=== PATIENT | male | born 1955 | race Caucasian/White ===

== ENCOUNTER 2018-02-24 14:26 | Outpatient (CLI) | payer BC, SELFPAY ==
[2018-02-24 16:02] LABS: Folate 15.2 ng/mL (8.6-20.0); Vitamin B12 1131 pg/mL (193-986)
[2018-02-28 10:54] LABS: Syphilis Serology (RPR) Negative (Negative)
== END 2018-02-24 14:46 ==
PROVIDERS: PCP Family Medicine; Visit Provider Family Medicine
DX: R27.0 Ataxia, unspecified (principal)
CPT/HCPCS: 36415; 82043; 82570; 82607; 82746; 83036; 86592

== ENCOUNTER 2018-02-24 14:28 | Outpatient (REF) | payer BC, SELFPAY ==
[2018-02-24 20:34] LABS: COMMENT (LAB VIEW ONLY) 32.61 mg/dL; Microalb ug/mg Crea 16.3 ug/mg Cr
== END 2018-02-24 14:48 ==
LOC: LBN 14:28
PROVIDERS: PCP Family Medicine; Visit Provider Family Medicine
DX: E11.9 Type 2 diabetes mellitus without complications (principal)
CPT/HCPCS: 82043; 82570

== ENCOUNTER 2019-02-09 02:18 | Outpatient (CLI) | payer OTHER, SELFPAY ==
[2019-02-09] MEDS: Normal Saline Flush 10 ML SYR IVP (11:09)
[2019-02-09] MEDS: Gadoterate meglumine 20 ML VIAL IVP (11:10)
--- NOTE | 2019-02-09 11:32 | DI.MRI_ITS ---
EXAM: MR CERVICAL SPINE WO/W CLINICAL HISTORY: MULTI LEVEL SPINAL STENOSIS, SPONDYLOSIS, FORAMINAL NARROWING. TECHNIQUE: Multiplanar multisequence MRI was performed. COMPARISON: No exams were available for comparison FINDINGS: There is patient motion artifact. There is normal signal in the spinal cord. No evidence of tonsillar ectopia is present. At C7-T1, there is no focal disc herniation, central spinal canal or neural foraminal stenosis. At C6-C7, there is prominence of the osteophyte disc complex. This causes mild narrowing of the cent ral spinal canal. There are hypertrophic changes of the uncovertebral joints bilaterally. This caus es moderate bilateral neural foraminal stenosis. At C5-C6, there is prominence of the osteophyte disc complex. This causes mild narrowing of the cent ral spinal canal. Atrophic changes of the uncovertebral joints are seen bilaterally, right [place] left. This results in moderate right and mild left neural foraminal stenosis. At C4-C5, there is prominence of the osteophyte disc complex causing mild narrowing of the central sp inal canal. Uncovertebral joint hypertrophic changes are seen. This causes mild narrowing of the n eural foramen bilaterally. At C3-C4, there are degenerative changes of the uncovertebral joints causing moderate bilateral neura l foraminal stenosis. No significant central spinal canal stenosis is present. At C2-C3, there is no focal disc herniation, central spinal canal or neural foraminal stenosis. There is a single round focus of hyperintense signal on both the T1 and T2 weighted images in the C3 vertebral body. This likely reflects a hemangioma or fatty rest. It shows no enhancement following contrast administration. Following contrast administration, there are no enhancing lesions in the cervical spine, spinal canal or spinal cord. IMPRESSION: 1. Multilevel degenerative changes in the cervical spine resulting in multilevel neural foraminal and central spinal canal stenosis. Please see the above discussion for complete details. 2. No enhancing lesions seen in the cervical spine, spinal canal or spinal cord.
== END 2019-02-09 02:38 ==
PROVIDERS: PCP Family Medicine; Visit Provider Anesthesiology
DX: M48.02 Spinal stenosis, cervical region (principal); M47.812 Spondylosis without myelopathy or radiculopathy, cervical region
CPT/HCPCS: 72156

== ENCOUNTER 2019-04-03 15:32 | Outpatient (CLI) | payer OTHER, SELFPAY ==
[2019-04-03 16:42] LABS: ALT 35 U/L (16-63); AST 19 U/L (15-37); Albumin 3.8 g/dL (3.4-5.0); Alkaline Phosphatase 101 U/L (46-116); Bilirubin, Direct 0.08 mg/dL (0.00-0.20); Bilirubin, Total 0.4 mg/dL (0.2-1.0); Total Protein 7.1 g/dL (6.4-8.2)
== END 2019-04-03 15:52 ==
PROVIDERS: PCP Family Medicine; Visit Provider Family Medicine
DX: B35.1 Tinea unguium (principal)
CPT/HCPCS: 36415; 80076

== ENCOUNTER 2019-04-28 19:22 | Outpatient (REF) | payer OTHER, SELFPAY ==
[2019-04-28 19:34] LABS: C-Reactive Protein 0.37 mg/dL (0.0-0.3)
[2019-05-01 13:32] LABS: Lyme Ab w Rflx to Lyme Confirm Negative (Negative)
[2019-05-02 18:48] LABS: Anaplasma phagocytophilum Negative (Negative); B. miyamotoi PCR Negative (Negative); Babesia divergens/MO-1 Negative (Negative); Babesia duncani Negative (Negative); Babesia microti Negative (Negative); Ehrlichia chaffeensis Negative (Negative); Ehrlichia ewingii/canis Negative (Negative); Ehrlichia muris eauclairensis Negative (Negative)
== END 2019-04-28 19:42 ==
LOC: NCHCN 19:22
PROVIDERS: PCP Family Medicine; Visit Provider Family Medicine
DX: M13.0 Polyarthritis, unspecified (principal)
CPT/HCPCS: 87798; 86140; 86618

== ENCOUNTER 2019-05-23 14:39 | Outpatient (REF) | payer OTHER, SELFPAY ==
[2019-06-21 08:22] LABS: Fungus Smear No Fungi Seen
== END 2019-05-23 14:59 ==
LOC: LBN 14:39
PROVIDERS: PCP Family Medicine; Visit Provider Family Medicine
DX: J18.9 Pneumonia, unspecified organism (principal)
CPT/HCPCS: 87102; 87206

== ENCOUNTER 2019-06-26 13:14 | Outpatient (CLI) | payer OTHER, SELFPAY ==
[2019-06-28 20:04] LABS: SARS-CoV-2 RNA Undetected (Undetected); SARS-CoV-2 Specimen Source Nasopharynx
== END 2019-06-26 13:34 ==
PROVIDERS: PCP Family Medicine; Visit Provider Family Medicine
DX: Z11.59 Encounter for screening for other viral diseases (principal)
CPT/HCPCS: U0003

== ENCOUNTER 2019-07-18 00:18 | Outpatient (CLI) | payer OTHER, SELFPAY ==
--- NOTE | 2019-07-18 07:15 | DI.US_ITS ---
APPROVED REPORT EXAM: Comprehensive 2D, Doppler, and color-flow Echocardiogram Patient Location: Out-Patient Haircutter: Nora Krishnamurthy RDCS (AE) Indications: CUETO Other Information Study Quality: Technically Difficult Conclusion Left Ventricle : The left ventricle is normal size. The overall left ventricular systolic function ap pears normal. There is normal left ventricular wall thickness. There is normal LV segmental wall jennifer on. The left ventricular diastolic function is normal. LVEF is 50%. Right Ventricle : The right ventricle is normal size. The right ventricular systolic function is norm al. The RVSP is 18 mmHg. Atria : The left atrium size is normal. The right atrium size is normal. Valves: There are no hemodynamically significant valvular lesions. Great Vessels : IVC is normal in size and collapses >50% with inspiration. There is no prior echocardiogram available for comparison. Wall motion Left Ventricle The left ventricle is normal size. The overall left ventricular systolic function appears normal. The re is normal left ventricular wall thickness. There is normal LV segmental wall motion. The left vent ricular diastolic function is normal. There is no ventricular septal defect visualized. LVEF is 50%. Right Ventricle The right ventricle is normal size. The right ventricular systolic function is normal. The RVSP is 18 mmHg. Atria The left atrium size is normal. The right atrium size is normal. The interatrial septum is intact wit h no evidence for an atrial septal defect. Aortic Valve The Aortic valve is sclerotic. There is no aortic valvular stenosis. No aortic regurgitation is prese nt. Mitral Valve There is mitral annular calcification. No evidence of mitral valve stenosis. Trace mitral regurgitati on. Tricuspid Valve The tricuspid valve is normal in structure. There is no tricuspid valve stenosis. Trace tricuspid reg urgitation. Pulmonic Valve Pulmonic valve is not well visualized. There is no pulmonic valvular stenosis. There is no pulmonic v alvular regurgitation. Great Vessels The aortic root is normal in size. Ascending aorta is not well visualized. Aortic arch is normal in c aliber. IVC is normal in size and collapses >50% with inspiration. Pericardium There is no pericardial effusion. There is no pleural effusion. 2D Dimensions IVSD d PLAX 1.01 cm M: 0.6-1.2 LV Vol A2C d MOD 118.6 mL LVPW d PLAX 1.09 cm M: 0.6 - 1.2 LV Vol A4C d MOD 96.0 mL LVID d PLAX 4.54 cm M: 4.2 - 5.8 LA vol/ BSA A2C s A-L 20.9 mL/m2 LVDs 3.40 cm M: 2.5 - 4.0 LA vol/ BSA A4C s A-L 12.8 mL/m2 Ao Root d 3.28 cm M: 3.1 - 3.7 LA Vol/ BSA Biplane s A-L 16.5 mL/m2 RA Area A4C 11.15 cm2 LA Area A4C s MOD 12.34 cm2 RA Vol/ BSA A4C s A-L 10.7 mL/m2 LA Area A2C s MOD 15.59 cm2 LV EF Teichholz 49.6 % LV EF A4C MOD 48.5 % LVEF (Lan's) 49.95 % M: 52 - 72 LV EF A2C MOD 49.2 % LV Volume 81.78 mL M: 62 - 150 LV EF Biplane MOD 50.0 % LV Volume Index 36.50 mL/m2 M: 34 - 74 LV Vol Biplane MOD 113.1 mL FS 25.00 % M-Mode TAPSE 2.04 cm (M/F) >1.7 LV Diastology E Decel Time 160.00 (160-240 msec) E/A Ratio 1.0 MV E' medial 0.067 (>0.07 m/s) MV E Vmax 0.65 (0.4-1.3 m/s) LV E/e MED 9.70 (<14) MV A Vmax 0.65 (0.4-1.3 m/s) MV E' lateral 0.060 (>0.1 m/s) MV E/A Ratio 0.95 LV E/e LAT 10.90 (<14) MV E/E' medial 9.72 MV E/E' lateral 10.91 E Peak Velocity 0.65 m/s A Peak Velocity 0.69 m/s Aortic Valve LVOT Area 2.93 cm2 AoV Area Vmax 2.18 cm2 LVOT Vmax 0.73 m/s AoV Area/ BSA (Vmax) 0.97 cm2/m2 LVOT Mean Todd. 0.52 m/s TIMMY Mean Todd. 1.96 cm2 LVOT Peak Grad 2.2 mmHg TIMMY Mean Todd. Index 0.87 cm2/m2 LVOT Mean Grad 1.2 mmHg LVOT VTI 0.146 m LVOT Diam s 1.90 cm (M/F) 1.5-2.5 AoV Vmax 0.99 (0.5-1.3 m/s) Velocity Ratio 0.73 AoV Mean Todd. 0.79 m/s AoV Peak Grad 3.9 mmHg LVOT SV 42.88 mL AoV Mean Grad 2.6 (<5 mmHg) AoV VTI 0.182 (0.18-0.25 m) AoV Area VTI 2.35 (2.5-4.5 cm2) AoV Area/ BSA (VTI) 1.05 cm/m2 Mitral Valve MV DT 160 (160-240 msec) MV PHT 46 msec MV Area PHT 4.73 cm2 Pulmonary Valve PV Vmax 1.00 (0.5-1.5 m/s) RVOT Peak Gr. 1.30 mmHg PV Peak Grad 4.0 mmHg RVOT Mean Gr. 0.75 mmHg PV Mean Grad 2.0 mmHg RVOT VTI 0.099 m PV VTI 0.168 m RVOT Vmax 0.57 m/s Tricuspid Valve TR Peak Grad 15.2 mmHg TR Vmax 1.96 m/s RA Pressure 3.00 mmHg RVSP (TR) 18.3 mmHg
== END 2019-07-18 00:38 ==
PROVIDERS: PCP Family Medicine; Visit Provider Family Medicine
DX: R06.09 Other forms of dyspnea (principal); E11.9 Type 2 diabetes mellitus without complications; Z79.4 Long term (current) use of insulin
CPT/HCPCS: 93306

== ENCOUNTER 2019-08-25 08:25 | Outpatient (CLI) | payer OTHER, SELFPAY ==
[2019-08-26 13:09] LABS: COVID-19 RT-PCR UVMMC Result Negative (Negative)
== END 2019-08-25 08:45 ==
PROVIDERS: PCP Family Medicine; Visit Provider Family Medicine
DX: Z11.59 Encounter for screening for other viral diseases (principal)
CPT/HCPCS: U0003

== ENCOUNTER 2019-08-28 18:50 | Outpatient (REF) | payer OTHER, SELFPAY ==
[2019-08-28 18:53] LABS: Abs Immature Grans 0.01 k/cumm (0.0-0.09); Absolute Basophil Count 0.01 k/cumm (0.0-0.2); Absolute Lymphocyte Count 1.75 k/cumm (1.2-3.4); Absolute Monocyte Count 0.69 k/cumm (0.11-0.7); Absolute Neutrophil Count 2.59 k/cumm (1.2-6.7); Basophils % 0.2; Eosinophils % 3.8; HCT 42.7 % (40.0-50.0); HGB 14.1 g/dL (13.5-17.5); Immature Grans % 0.2 %; Lymphocytes % 33.3; Mean Corpuscular Hemoglobin 28.9 pg (27.0-33.0); Mean Corpuscular Volume 87.5 fL (80-95); Mean Platelet Volume 10.6 fL (8.0-11.0); Monocytes % 13.1; Neutrophils % 49.4; Platelet Count 196 x1000/uL (130-400); RBC 4.88 m/cumm (4.50-6.00); White Blood Cell Count 5.25 k/cumm (4.4-10.8)
== END 2019-08-28 19:10 ==
LOC: LBN 18:50
PROVIDERS: PCP Family Medicine; Visit Provider Family Medicine
DX: R06.00 Dyspnea, unspecified (principal)
CPT/HCPCS: 85025

== ENCOUNTER 2019-08-29 04:39 | Outpatient (CLI) | payer OTHER, SELFPAY ==
--- NOTE | 2019-08-30 08:40 | W.PFT ---
Date of service: 08/29/19 Time of Service: 10:06 Pulmonary Function Test Result Interpretation Spirometry: No evidence of obstructive airways disease, no bronchodilator response Lung Volumes: Shows moderate restriction Diffusion Capacity: Shows moderately decreased diffusion capacity which is normal when corrected to alveolar volume Airway Pressure: Normal Impression Moderately severe restrictive lung disease which is associated with moderate diffusion defect. Clinical correlation recommended Clinical Correlation therefore is recommended.
== END 2019-08-29 04:59 ==
PROVIDERS: PCP Family Medicine; Visit Provider Family Medicine
DX: R06.09 Other forms of dyspnea (principal)
CPT/HCPCS: 94060; 94726; 94729

== ENCOUNTER 2019-09-29 03:28 | Outpatient (CLI) | payer MEDICARE, BC, SELFPAY ==
[2019-09-30 13:43] LABS: SARS-CoV-2 IgG Ab Negative (Negative)
== END 2019-09-29 03:48 ==
PROVIDERS: PCP Family Medicine; Visit Provider Internal Medicine
DX: R93.89 Abnormal findings on diagnostic imaging of other specified body structures (principal); Z03.818 Encounter for observation for suspected exposure to other biological agents ruled out
CPT/HCPCS: 36415; 86769

== ENCOUNTER 2019-10-05 01:27 | Outpatient (CLI) | payer MEDICARE, BC, SELFPAY ==
--- NOTE | 2019-10-05 | DI.CT_ITS ---
EXAM: CT CHEST PE CTA CLINICAL HISTORY: F/U ABNL CHEST XRAY,R93.89,? THROMBOEMBOLIC DISEASE,SOB TECHNIQUE: COMPARISON: CR CHEST 2 VIEWS PA,LAT from 06/26/2016 DX CXR from 05/18/2019 FINDINGS: CT angiography of the chest was was infusion 100 cc of Omnipaque 350. Images obtained through the up per abdomen show unremarkable appearance of visualized portions of the liver and spleen. There is no mediastinal or hilar adenopathy. Tracheobronchial tree appears intact. There are linear areas of atelectasis and/or scarring in lung bases. There are few tiny calcified pulmonary nodules consistent with healed granulomatous disease. No noncalcified nodule seen, no apparent consolidation . No pleural effusion. There is no evidence of pulmonary embolic disease. Thoracic aorta is of normal diameter and there is no evidence of dissection. IMPRESSION: No evidence of pulmonary embolic disease. There are small bibasilar areas of atelectasis and/or scarring. No other significant findings.
[2019-10-05 13:33] LABS: BUN 18 mg/dL (7-18); CREATININE 1.12 mg/dL (0.70-1.30)
[2019-10-05] MEDS: Omnipaque 350 MG/ML 100 ML BTL IJ (14:13)
[2019-10-05] MEDS: Normal Saline - Diluent 50 ML VIAL IV (14:14)
[2019-10-05] MEDS: Normal Saline Flush 10 ML SYR IVP (14:15)
== END 2019-10-05 01:47 ==
PROVIDERS: PCP Family Medicine; Visit Provider Internal Medicine
DX: R93.89 Abnormal findings on diagnostic imaging of other specified body structures (principal); J98.4 Other disorders of lung
CPT/HCPCS: 71275; 84520; 82565; J3490

== ENCOUNTER → 2020-06-12 13:07 | Outpatient (BNVA) | payer MEDICARE, BC, SELFPAY | PROVIDERS: PCP Family Medicine; Referring Provider Family Medicine; Visit Provider Nurse Practitioner Gerontology | DX: C61 Malignant neoplasm of prostate (principal); N52.9 Male erectile dysfunction, unspecified | CPT/HCPCS: 99205 ==

== ENCOUNTER 2020-06-12 15:15 | Outpatient (REF) | payer MEDICARE, BC, SELFPAY ==
[2020-06-12 22:58] LABS: PSA, Diagnostic <0.1 ng/mL (0.0-4.5)
== END 2020-06-12 15:16 | disposition home or self-care (01) ==
LOC: LBN 15:15
PROVIDERS: PCP Family Medicine; Visit Provider Nurse Practitioner Gerontology
DX: C61 Malignant neoplasm of prostate (principal)
CPT/HCPCS: 84153

== ENCOUNTER 2020-11-19 16:36 | Outpatient (REF) | payer MEDICARE, BC, SELFPAY ==
[2020-11-19 22:32] LABS: Rheumatoid Factor <8.6 IU/mL (<12.0)
[2020-11-20 09:29] LABS: IgA 125 mg/dL (85-499); IgG 1168 mg/dL (610-1,616); IgM 136 mg/dL (35-242)
[2020-11-20 10:08] LABS: Cyclic Citrullinated Peptide <2.5 U/mL (<5.0)
[2020-11-20 10:26] LABS: IgE 133 IU/mL (<158)
[2020-11-20 14:02] LABS: ANA Interpretation Negative (Negative)
[2020-11-21 11:36] LABS: dsDNA Ab, IgG <12.3 IU/mL (<30.0)
== END 2020-11-19 16:37 | disposition home or self-care (01) ==
LOC: LBN 16:36
PROVIDERS: PCP Family Medicine; Visit Provider Student in an Organized Health Care Education/Training Program
DX: J98.4 Other disorders of lung (principal)
CPT/HCPCS: 82784; 86200; 82785; 82787; 86038; 86225; 86431

== ENCOUNTER 2020-11-26 05:02 | Outpatient (CLI) | payer MEDICARE, BC, SELFPAY ==
[2020-11-26] MEDS: Albuterol HFA 18 GM 200 PUFF INH IH (16:29)
[2020-11-26] MEDS: Inhaler, Assist Device 1 EACH MC (16:29)
--- NOTE | 2020-11-27 13:05 | W.PFT ---
Date of service: 11/26/20 Time of Service: 15:09 Pulmonary Function Test Result Requesting Provider Ish Indications: Dyspnea on exertion Interpretation Spirometry: There is no airflow limitation. There is a restrictive pattern to spirometry. There is no significant bronchodilator effect. Pulse MIP and MEP are decreased. Lung Volumes: There is moderate restrictive lung disease. Diffusion Capacity: The diffusion capacity is reduced. Airway Pressure: Noise resistance is normal. Impression Moderate restrictive lung disease with decreased muscle pressures as well as a reduced diffusion. Note: When compared to 08/29/2019 the FEV1 and FVC are essentially unchanged. The total lung capacity is unchanged. Clinical Correlation therefore is recommended.
== END 2020-11-26 05:03 | disposition home or self-care (01) ==
PROVIDERS: PCP Family Medicine; Visit Provider Student in an Organized Health Care Education/Training Program
DX: J98.4 Other disorders of lung (principal); R06.09 Other forms of dyspnea
CPT/HCPCS: 94060; 94726; 94729

== ENCOUNTER 2020-12-02 01:41 | Outpatient (CLI) | payer MEDICARE, BC, SELFPAY ==
--- NOTE | 2020-12-02 08:15 | DI.CT_ITS ---
Exam(s) CT CHEST HIGH RESOLUTION EXAM: CT CHEST HIGH RESOLUTION CLINICAL HISTORY: Restrictive PFT's, rule out ILD J98.4 DISORDER OF LUNG. TECHNIQUE: Imaging protocol: Axial computed tomography images were obtained and coronal and sagittal reformatted images were created and reviewed. COMPARISON: CR CHEST 2 VIEWS PA,LAT from 08/02/2015 CR CHEST 2 VIEWS PA,LAT from 08/02/2015 CR CHEST 2 VIEWS PA,LAT from 06/26/[address] CHEST PE CTA from 10/05/[address] CHEST PE CTA from 10/05/2019 FINDINGS: Tracheobronchial tree: Patent where visualized. No bronchiectasis. Mediastinum and Prabha: No dominant adenopathy or fluid collection. Pulmonary parenchyma: No consolidation or dominant measurable mass. No visible interstitial changes. Basilar atelectasis or scarring. Low lung volumes. A few scattered tiny to 3 millimeter calcified and noncalcified nodules, likely granulomas. Pleura: No effusion or pneumothorax. Heart: The heart is not dilated. Mild coronary artery calcifications are seen. Aorta: Thoracic aorta non-dilated. Minimal calcification. Upper abdomen: Status post cholecystectomy. Cyst upper pole right kidney. Granuloma posterior righ t lobe of the liver. Lymph nodes: Within normal limits. Bones:Unremarkable for age. IMPRESSION: Low lung volumes and mild bilateral bibasilar scarring versus atelectasis. No evidence interstitial lung disease. RADIATION DOSE DELIVERED: 792.24mGy.cm Total DLP DATA REPOSITORY: All CT scans at this facility are submitted to the National Radiology Data Registry (NRDR) Dose Index Registry (DIR) with the [employer] (ACR). RADIATION OPTIMIZATION: All CT scans at this facility use at least one of these dose optimization te chniques: automated exposure control; mA and/or kV adjustment per patient size (includes targeted exa ms where dose is matched to clinical indication); or iterative reconstruction.
== END 2020-12-02 02:01 ==
PROVIDERS: PCP Family Medicine; Visit Provider Student in an Organized Health Care Education/Training Program
DX: J98.4 Other disorders of lung (principal); R91.8 Other nonspecific abnormal finding of lung field
CPT/HCPCS: 71250

== ENCOUNTER → 2021-02-26 11:03 | Outpatient (BNVA) | payer MEDICARE, BC, SELFPAY | PROVIDERS: PCP Family Medicine; Referring Provider Student in an Organized Health Care Education/Training Program; Visit Provider Psychiatry & Neurology Neurology | DX: E11.49 Type 2 diabetes mellitus with other diabetic neurological complication (principal); E11.65 Type 2 diabetes mellitus with hyperglycemia; G70.9 Myoneural disorder, unspecified; J99 Respiratory disorders in diseases classified elsewhere; G62.9 Polyneuropathy, unspecified; E11.43 Type 2 diabetes mellitus with diabetic autonomic (poly)neuropathy; R06.02 Shortness of breath; M48.02 Spinal stenosis, cervical region; I10 Essential (primary) hypertension | CPT/HCPCS: 99215 ==

== ENCOUNTER 2021-03-05 01:31 | Outpatient (CLI) | payer MEDICARE, BC, SELFPAY ==
[2021-03-05 13:55] LABS: ESR 3 mm/hr (0-20)
[2021-03-05 14:44] LABS: ALT 36 U/L (16-63); AST 16 U/L (15-37); Albumin 3.8 g/dL (3.4-5.0); Alkaline Phosphatase 100 U/L (46-116); Anion Gap 6.9 mmol/L (3-11); BUN 20 mg/dL (7-18); Bilirubin, Total 0.4 mg/dL (0.2-1.0); CO2 30.1 mmol/L (21.0-32.0); CREATININE 1.2 mg/dL (0.70-1.30); Chloride 103 mmol/L (98-107); Glucose 247 mg/dL (74-106); Potassium 4.6 mmol/L (3.5-5.1); Sodium 140 mmol/L (136-145); Total Protein 7.2 g/dL (6.4-8.2)
[2021-03-05 17:17] LABS: C-Reactive Protein 0.25 mg/dL (0.0-0.3); Creatine Kinase 162 U/L (39-308)
[2021-03-05 18:01] LABS: Vitamin B12 851 pg/mL (193-986)
[2021-03-06 13:42] LABS: Total Protein 7.2 g/dL (6.3-8.2)
== END 2021-03-05 01:32 | disposition home or self-care (01) ==
LOC: LBO 01:31
PROVIDERS: PCP Family Medicine; Visit Provider Psychiatry & Neurology Neurology
DX: G70.9 Myoneural disorder, unspecified (principal); G62.9 Polyneuropathy, unspecified; E11.49 Type 2 diabetes mellitus with other diabetic neurological complication
CPT/HCPCS: 36415; 80053; 82550; 85652; 82607; 83519; 84165; 84443; 86140

== ENCOUNTER 2021-03-12 09:52 | Outpatient (CLI) | payer MEDICARE, BC, SELFPAY ==
--- NOTE | 2021-03-12 09:30 | DI.MRI_ITS ---
Exam(s) MR CERVICAL SPINE WO EXAM: MR CERVICAL SPINE WO CLINICAL HISTORY: worse balance; cervical spondylosis, cervical stenosis, M47.812, M48.02 TECHNIQUE: Multiplanar multisequence MRI of the cervical spine was performed without intravenous con trast. COMPARISON: MR MR CERVICAL SPINE WO/W from 02/09/2019 FINDINGS: The examination is limited due to patient motion artifact. BONES: Vertebral body heights are maintained. There is disc space narrowing from C4-5 through C6-C7.. Alignment is normal. Endplate degenerative signal changes seen at multiple levels of the cervical s pine. CERVICAL CORD: Craniovertebral junction is unremarkable. The cervical cord is normal size and signal intensity. SOFT TISSUES: Unremarkable. C2-3: No disc herniation or bulge is identified. No significant central spinal canal or neural forami nal stenosis. C3-4: Mild prominence of the osteophyte disc complex is seen. The AP diameter of the central spinal canal is 1 cm. Left uncovertebral joint hypertrophy causes moderate left neural foraminal stenosis. There is mild right neural foraminal stenosis. C4-5: There is prominence of the osteophyte disc complex. There is some effacement of the anterior s ubarachnoid space. The AP diameter of the central spinal canal is 9 mm. There is moderate left neur al foraminal stenosis. No significant right neural foraminal stenosis is present. C5-6: There is prominence of the osteophyte disc complex narrowing the central spinal canal and compr essing the spinal cord. The AP diameter of the spinal canal is 7 mm. Bilateral neural foraminal annabella nosis is seen which is moderate. C6-7: There is prominence of the osteophyte disc complex causing central spinal canal stenosis. The AP diameter of the central spinal canal 7 mm. Degenerative changes of the uncovertebral joints are s een bilaterally causing [id number] bilateral neural foraminal stenosis. C7-T1: No disc herniation or bulge is identified. No significant central spinal canal or neural rich inal stenosis IMPRESSION: Multilevel degenerative changes in the cervical spine causing central spinal canal and neural foramin al stenosis and cord compression. Please see the above discussion for complete details. There is no rmal signal in the spinal cord. DATA REPOSITORY:
== END 2021-03-12 10:12 ==
PROVIDERS: PCP Family Medicine; Visit Provider Psychiatry & Neurology Neurology
DX: M47.812 Spondylosis without myelopathy or radiculopathy, cervical region (principal); M48.02 Spinal stenosis, cervical region; M25.78 Osteophyte, vertebrae
CPT/HCPCS: 72141

== ENCOUNTER → 2021-04-15 12:42 | Outpatient (BNVA) | payer MEDICARE, SELFPAY | PROVIDERS: PCP Family Medicine; Referring Provider Family Medicine; Visit Provider Psychiatry & Neurology Neurology | DX: M48.02 Spinal stenosis, cervical region (principal); G70.9 Myoneural disorder, unspecified; J99 Respiratory disorders in diseases classified elsewhere; E11.43 Type 2 diabetes mellitus with diabetic autonomic (poly)neuropathy; E11.49 Type 2 diabetes mellitus with other diabetic neurological complication; R06.02 Shortness of breath; I10 Essential (primary) hypertension | CPT/HCPCS: 95886; 95910; 99213 ==

== ENCOUNTER → 2021-05-07 09:51 | Outpatient (BNVA) | payer MEDICARE, SELFPAY | PROVIDERS: PCP Family Medicine; Referring Provider Family Medicine; Visit Provider Psychiatry & Neurology Neurology | DX: R06.00 Dyspnea, unspecified (principal); G70.9 Myoneural disorder, unspecified; J99 Respiratory disorders in diseases classified elsewhere; E11.43 Type 2 diabetes mellitus with diabetic autonomic (poly)neuropathy; E11.49 Type 2 diabetes mellitus with other diabetic neurological complication; E11.65 Type 2 diabetes mellitus with hyperglycemia; M48.02 Spinal stenosis, cervical region | CPT/HCPCS: 99214 ==

== ENCOUNTER 2021-06-24 15:08 | Outpatient (REF) | payer MEDICARE, SELFPAY ==
[2021-06-24 12:01] LABS: NT-proBNP 10 pg/mL (<300)
[2021-06-24 12:18] LABS: Calculated LDL 83 mg/dL (<100); Cholesterol 172 mg/dL (<200); HDL Cholesterol 52 mg/dL (40-60); Triglyceride 188 mg/dL (<150)
== END 2021-06-24 15:09 | disposition home or self-care (01) ==
LOC: LBN 15:08
PROVIDERS: PCP Family Medicine; Visit Provider Student in an Organized Health Care Education/Training Program
DX: E11.65 Type 2 diabetes mellitus with hyperglycemia (principal); R06.02 Shortness of breath
CPT/HCPCS: 80061; 83880

== ENCOUNTER → 2021-08-22 00:26 | Outpatient (CLI) | payer MEDICARE, SELFPAY ==
--- OUTSIDE RECORDS SUMMARY | 2021-08-22 00:28 | XMS_ITS ---
:1955 Author Care Team Providers Name Role Phone VINCE SOLARES ([facility]) Primary Care Provi kristel [phone] [facility] OTHER [phone] [facility] OTHER [phone] Allergies Code Code System Name Reaction Severity Status Onset 111418 RxNorm Banana ? ? Active ? 89370 RxNorm Gabapentin ? ? Active ? 5980 RxNorm Iodine ? ? Active ? [id number] RxNorm Latex ? ? Active ? 23580 RxNorm Metaxalone ? ? Active ? 6809 RxNorm Metformin ? ? Active ? Medications Name Status Start Date Stop Date ? ? albuterol sulfate HFA 90 mcg/actuation aerosol inhaler Active ? Not available INHALE 2 PUFFS BY MOUTH EVERY 6 HOURS A S NEEDED FOR SHORTNESS OF BREATH OR WHEEZING amitriptyline 25 mg tablet Completed ? 12/02 Anoro Ellipta 62.5 mcg-25 mcg/actuation powder for inhalation Ac tive ? Not available INHALE 1 PUFF BY MOUTH DAILY atorvastatin 40 mg tablet Active ? Not av ailable TAKE 1 TABLET BY MOUTH DAILY BD Insulin Syringe Ultra-Fine 0.3 mL 31 gauge x /16 Active ? Not available USE THREE TIMES A DAY BD Ultra-Fine Mini Pen Needle 31 gauge x 3/16 Active ? Not available bupropion HCl XL 150 mg 24 hr tablet, extended release Completed ? 07/29/2020 TAKE 1 TABLET BY MOUTH EVERY MORNING cefuroxime axetil 500 mg tablet Completed ? 12/02/2020 clarithromycin 500 mg tablet Completed ? cyclobenzaprine 5 mg tablet Completed ? 11/20 PRN esomeprazole magnesium 40 mg capsule,delayed release Active ? Not available TAKE 1 CAPSULE BY MOUTH DAILY Farxiga 10 mg tablet Active ? Not availab le TAKE 1 TABLET BY MOUTH DAILY FreeStyle Izabella 14 Day Sensor kit Active ? Not available gabapentin 400 mg capsule Completed 01/09/20122015 1 Capsule: in the evening Glucagon Emergency Kit 1 mg solution for injection Active ? Not available INJECT 1MG UNDER THE SKIN EVERY 20 MINUTES NEEDED FOR HYPOGL YCEMIA Humulin R U-500 (Conc) Insulin Kwikpen 500 Active ? Not available unit/mL (3 mL) subcutaneous Humulin R U-500 (Concentrated) Insulin 500 Completed ? 12/02/2020 unit/mL subcutaneous soln ketoconazole 2 % topical cream Active ? N ot available Lantus Solostar U-100 Insulin 100 unit/mL (3 mL) subcutaneous pe n Active ? Not available ADMINISTER 36 UNITS UNDER THE SKIN EVERY MORNING Levemir U-100 Insulin 100 unit/mL subcutaneous solution Complete d 01/09/2012 09/02/2015 1 Solution: bid - twice daily modafinil 100 mg tablet Active ? Not avai lable TAKE 1 TABLET BY MOUTH EVERY MORNING modafinil 200 mg tablet Active ? Not avai lable TAKE 1 TO 1 AND 1/2 TABLETS BY MOUTH DAILY moxifloxacin 0.5 % eye drops Completed ? INSTILL 1 DROP IN LEFT EYE FOUR TIMES DAILY DIRECTED naltrexone 50 mg tablet Active ? Not avai lable TAKE 1 TABLET BY MOUTH DAILY prednisolone acetate 1 % eye drops,suspension Completed ? 12/02/2020 INSTILL 1 DROP INTO THE RIGHT EYE QID. SHAKE WELL prednisone 10 mg tablet Completed ? 12/03/19 21 pregabalin 150 mg capsule Completed ? 2021 pregabalin 200 mg capsule Active ? Not av ailable TAKE ONE CAPSULE BY MOUTH TWICE DAILY PreviDent 5000 Booster Plus 1.1 % dental paste Active ? Not available USE TOOTH PASTE. SPIT OUT BUT DO NOT RINSE. sildenafil 100 mg tablet Active ? Not sage ilable Stiolto Respimat 2.5 mcg-2.5 mcg/actuation solution for inhalati on Active ? Not available INHALE 2 PUFFS BY MOUTH DAILY terbinafine HCl 250 mg tablet Completed ? valacyclovir 1 gram tablet Completed ? 12/02 TK 1 T PO TID venlafaxine ER 225 mg tablet,extended release 24 hr Active ? Not available TAKE 1 TABLET BY MOUTH DAILY venlafaxine ER 75 mg capsule,extended release 24 hr Completed ? 12/02/2020 TAKE 3 CAPSULES BY MOUTH DAILY Victoza 3-Hsyam 0.6 mg/0.1 mL (18 mg/3 mL) subcutaneous pen inject or Active ? Not available ADMINISTER 1.8 MG UNDER THE SKIN DAILY Problems Name Status Onset Date Source ? Tomography - Chest Abnormal Active 09/28/2019 ? Type 2 Diabetes Mellitus without Complication Active ? History Hyperlipidemia Active ? History Depressive Disorder Active ? History Obstructive Sleep Apnea Syndrome Active ? History Joint Pain Active ? History Muscle Fasciculation Active ? History Procedures Date Name Performed by ? 03/22/1996 Cholecystectomy Information not avai lable 03/22/1983 Vasectomy Information not avai lable 09/28/2019 CT, Chest, W/o Contrast [facility] (Internal) [address] [place], [place] [id number] (Work Place) 09/28/2019 CT, Angiogram, Chest, W/ Contrast Xray [facility] [address] [place], [place] [address] (Work Place) Results Lab Results Date Name Specimen Result Interpretation Description Value Range Status Address ? 10/05/2019 Creatinine, Serum ? No observation ? ? ? [facility] or Plasma recorded. [facility]: [address] [place] [address] 10/05/2019 Bun (Blood Urea ? No observation ? ? ? [facility] Nitrogen), Serum recorded. [facility] l: [address] [place] [address] 09/29/2019 SARS CoV 2 IgG Ab, ? No observation ? ? ? [facility] QL IA, Serum or recorded. [facility]: [address] [place] [address] Past Encounters 06/30/2021 Obstructive Sleep Apnea Syndrome; Period ic Limb Movement Disorder; Cramp in Lower Limb Associated with Sleep; Daytime Hypersomnia; Health Education Given Juarez Chen MD, Board Certified Sleep Ph ysician: [address] [place] [address] [address], [place] [address], Ph. 05/26/2021 Obstructive Sleep Apnea Syndrome; Period ic Limb Movement Disorder; Cramp in Lower Limb Associated with Sleep; Daytime Hypersomnia; Health Education Given Juarez Chen MD, Board Certified Sleep Ph ysician: [address] [place] [address] [address], [place] [address], Ph. 02/10/2021 Obstructive Sleep Apnea Syndrome; Period ic Limb Movement Disorder; Cramp in Lower Limb Associated with Sleep; Daytime Hypersomnia; Health Education Given Juarez Chen MD, Board Certified Sleep Ph ysician: [address] [place] [address] [address] , [place] [address], Ph. 12/02/2020 Obstructive Sleep Apnea Syndrome; Period ic Limb Movement Disorder; Cramp in Lower Limb Associated with Sleep; Daytime Hypersomnia; Health Education Given Juarez Chen MD, Board Certified Sleep Ph ysician: [address] [place] [phone], Ph. 07/29/2020 Obstructive Sleep Apnea Syndrome; Period ic Limb Movement Disorder; Cramp in Lower Limb Associated with Sleep; Daytime Hypersomnia Juarez Chen MD, Board Certified Sleep Ph ysician: [address] [place] [phone], Ph. Social History Tobacco Smoking Status Never Smoker Vaccine List Vaccine Type influenza, injectable, quadrivalent 12/29/2018 pneumococcal conjugate PCV 13 02/24/2018 pneumococcal polysaccharide PPV23 09/17/2006 Tdap 11/23/2007 Plan of Care Patient Instructions sorter upholstery parts Natrol Melatonin Sustained Rele ase at 3mg to 10mg as we discussed in todays visit. For your leg cramps I recommend that you use [facility] High absorption 100mg magnesium. Take 2 to 4 tablets daily. I will discuss with Dr. Minh craft the plan to test for supplemental oxygen at night. Increase modafinil dose to 200 to 300mg daily (1 to 1.5 tab of 200mg tablets), refills given. Make sure you can tolerate the higher dose at home before leaving home on that. Follow up in 3 months, sooner if needed. Short interval follow-up in 1 month to check how patient is doing on CPAP especially with mouth leak, sooner if needed follow up in 3 weeks, 12/23/20 We will repeat sleep study to requalify you for sleep apnea treatment We will send for a new CPAP machine to [facility] after the sleep study if you qualify We will then meet for a face to face vis it to see how you do on cpap. Reminders Provider Appointments None recorded. ? ? Lab None recorded. ? ? Referral None recorded. ? ? Procedures None recorded. ? ? Surgeries None recorded. ? ? Imaging None recorded. ? ? Vitals 06/30/2021 03:45PM New Patient 45 Height Weight BMI Blood Pressure 185.42 cm 100.7 kg 29.3 kg/m2 124/72 mm[Hg] 05/26/2021 02:00PM Office 30 Height Weight BMI Blood Pressure 185.42 cm 104.33 kg 30.3 kg/m2 132/76 mm[Hg] 02/10/2021 02:45PM Office 30 Height Weight BMI Blood Pressure 185.42 cm 104.33 kg 30.3 kg/m2 138/74 mm[Hg] 12/02/2020 11:00AM Office 30 Height Weight BMI Blood Pressure 185.42 cm 107.05 kg 31.1 kg/m2 134/75 mm[Hg] 07/29/2020 01:00PM New Patient 45 Height Weight BMI Blood Pressure 185.42 cm 107.05 kg 31.1 kg/m2 130/80 mm[Hg] 10/13/2019 09:00AM Office 15 Height Weight BMI Blood Pressure 185.42 cm 104 kg 30.2 kg/m2 128/70 mm[Hg] 09/28/2019 10:00AM Office 15 Height Weight BMI Blood Pressure 185.42 cm 103 kg 30 kg/m2 130/76 mm[Hg] 09/02/2015 Height 185.42 cm 09/02/2015 Weight Blood Pressure 103.65 kg 120/76 mm[Hg] 09/26/2014 Weight Blood Pressure 106.85 kg 112/64 mm[Hg] 09/26/2014 Height 185.42 cm
--- OUTSIDE RECORDS SUMMARY | 2021-08-22 00:28 | XMS_ITS | Encounter Summary ---
:1955 Author Care Team Providers Name Role Phone Alli Calvillo ([facility]) Primary Care Provi kristel [phone] [facility] Medical Records OTHER [phone] [facility] OTHER [phone] Reason for Visit SLEEP CLINIC Follow-Up CPAP/BIPAP Therap y Assessment and Plan Assessment Note I provided greater than 40 minutes in th e care of this patient, more than half the time was spent in nshd-ev-oeia counseling. 1. Obstructive sleep apnea syndrome 07/29/20: Hx of Mild to Moderate BRAEDEN ass oc w/ nocturnal hypoxemia dx'ed in 2009, pt weight stable but notes worsening of breathing symptoms and since has new dx of right hemidiaphragm paralysis, which m ay also be worsening night time oxygenat ion. He has persistent symptoms of loud snoring, unrefreshing sleep, multiple nocturnal awakenings and excessive daytime sleepiness with ESS 16/24. * repeat IN lab sleep study to requalify for cpap, as pt now interested to try it again, prev tried/did not tolerate due to mask/pressures. 12/02/20: started cpap about 4 weeks ago, last 2 wks couldnt use, waiting on mask refit. tried about 3 masks already, dreamwear ffm works best so far but slipping/leaking, waiting to try airfit f30i via fiting w/ kmp. 02/10/2021: About 4 weeks ago patient wa s able to get his new mask the AirFit F30i, and patient notes now he is finally able to use the machine nightly. He notes improved sleep quality, less nighttime a wakenings and more refreshing sleep. He does have persistent daytime sleepiness. Continue APAP 7 to 16 cm 05/26/2021: Patient discontinued CPAP 3 we eks ago due to new onset of 6 cavities which he and his dentist attributed to CPAP use. He is using the humidifier and Biotene dry mouth wash. However he reveals that he often wake up with his lip below the bottom shelf of his AirFit F30 mask. He mainly wanted to discuss non-CPAP options at this meeting especially inspire device. We went over the pros and cons o f inspire which may help treat his obstr uctive sleep apnea, which is mild in nonsupine positions. But given his severe nocturnal hypoxemia and the diaphragm paralysis contributing to this, I do think po sitive airway pressure is by far the pre ferred treatment, not only for his obstructive sleep apnea but also for the hypoxemia and hypoventilation. If we make a change I would suggest changing to BiPAP t herapy. He has not had a titration sleep study yet. I also let him know that if he was very opposed to using Pap therapy, at the very least we should give him supplemental oxygen for the hypoxemia/hypoventilation. Plan: After discussion patient is galen craft to reconsider going back on CPAP. I highly suspect the dental cavities is related to mouth opening despite using a full facemask. I gave him a chinstrap today w norris I advised him to use with the full facemask. We talked about creative ideas to help his sleep, including using earplugs. ? sleep apnea: care instructions 2. Periodic limb movement disorder 07/29/20 severe plmd on 2009 PSG. pt not e improvement of sxs when he started lyrica 200mg bid for neck neuropathic pain. 12/02/20: note severe PLMD on recent PSG, PLM index 53/hr. PLM arousal index 5/hr. wonder if this is w hy only the top hose style mask work best for him, will cont to monitor and consider adding medication to treat this 05/26/2021: Continue to monitor, we will b e able to see this better with the titration sleep study if we do that in the future 3. Cramp in lower limb associated with sleep 02/10/2021: At next visit we will discu ss whether adding magnesium for his muscle cramps may be appropriate 4. Daytime hypersomnia 02/10/2021: Despite 4 weeks of good CPA P compliance and excellent treatment AHI reduction, patient still has an Countyline Sleepiness Scale reported at 17 out of 24. See BRAEDEN section above for plan. I let him know that he may have residual hyper somnia related to sleep apnea and if this continues we can start modafinil 100 to 200 mg daily. 02/26/2021: Due to persistent hypersomnia , patient called on the phone and I sent prescription for modafinil 100 to 200 mg daily for him to start before the next visit 05/26/2021: Patient reports the modafinil at 100 mg daily has been somewhat effective though he is not taking it every day and it appears to have not issue with the insurance to get the 60 pills. We will instead switch to modafinil 200 mg table ts, and switch to 1 to 1.5 tablets daily, he may take 200 mg every morning and add an additional 100 mg as needed for driving or other special occasions. ? modafinil 200 mg tablet 5. Health education given ? learning about sleeping well Discussion Note Remember to always take precautions on drowsy driving. If you experience sleepiness while driving, find a safe area to chute puller and take a break. Research suggests taking a power nap (15 to 20 minut es) and/or coffee (or caffeine containin g food such as dark chocolate) may be effective aides. As always, you should use your judgement on whether to drive at all, if you are sleep deprived or feeling sleepy. Thank you for the kind opportunity to p articipate in your medical care. You expressed good understanding of your diagnosis and treatment, and agreed to proceed with the plan we discussed together. If y ou have any questions or concerns prior to your next appointment, please call Sleep Clinic. Plan of Care Patient Instructions Short interval follow-up in 1 month to check how patient is doing on CPAP especially with mouth leak, sooner if needed Reminders Provider Appointments Office 30 11/03/2021 11:15AM Juarez Chen MD, Board Certified Sleep Physician Lab None recorded. ? ? Referral None recorded. ? ? Procedures None recorded. ? ? Surgeries None recorded. ? ? Imaging None recorded. ? ? Medications Name Start Date ? ? albuterol sulfate HFA 90 mcg/actuation aerosol inhaler ? INHALE 2 PUFFS BY MOUTH EVERY 6 HOURS A S NEEDED FOR SHORTNESS OF BREATH OR WHEEZING Anoro Ellipta 62.5 mcg-25 mcg/actuation powder for inh alation ? INHALE 1 PUFF BY MOUTH DAILY atorvastatin 40 mg tablet ? TAKE 1 TABLET BY MOUTH DAILY BD Insulin Syringe Ultra-Fine 0.3 mL 31 gauge x 08/04 ? USE THREE TIMES A DAY BD Ultra-Fine Mini Pen Needle 31 gauge x 06/04 ? USE DIRECTED FOUR TIMES DAILY esomeprazole magnesium 40 mg capsule,delayed release ? TAKE 1 CAPSULE BY MOUTH DAILY Farxiga 10 mg tablet ? TAKE 1 TABLET BY MOUTH DAILY FreeStyle Izabella 14 Day Sensor kit ? USE DIRECTED Glucagon Emergency Kit 1 mg solution for injection ? INJECT 1MG UNDER THE SKIN EVERY 20 MINUTES NEEDED FOR HYPOGLYCEMIA Humulin R U-500 (Conc) Insulin Kwikpen 500 unit/mL (3 mL) subcutaneous ? INJECT 55 UNITS UNDER THE SKIN THREE TIMES DAILY ketoconazole 2 % topical cream ? Lantus Solostar U-100 Insulin 100 unit/mL (3 mL) subcu taneous pen ? ADMINISTER 36 UNITS UNDER THE SKIN EVERY MORNING modafinil 100 mg tablet ? TAKE 1 TABLET BY MOUTH EVERY MORNING modafinil 200 mg tablet ? TAKE 1 TO 1 AND 1/2 TABLETS BY MOUTH DAILY naltrexone 50 mg tablet ? TAKE 1 TABLET BY MOUTH DAILY pregabalin 200 mg capsule ? TAKE ONE CAPSULE BY MOUTH TWICE DAILY PreviDent 5000 Booster Plus 1.1 % dental paste ? USE TOOTH PASTE. SPIT OUT BUT DO NOT RINSE. sildenafil 100 mg tablet ? Stiolto Respimat 2.5 mcg-2.5 mcg/actuation solution fo r inhalation ? INHALE 2 PUFFS BY MOUTH DAILY venlafaxine ER 225 mg tablet,extended release 24 hr ? TAKE 1 TABLET BY MOUTH DAILY Victoza 3-Shyam 0.6 mg/0.1 mL (18 mg/3 mL) subcutaneous pen injector ? ADMINISTER 1.8 MG UNDER THE SKIN DAILY Medications Administered None recorded. Vitals Height Weight BMI Blood Pressure 6 ft 1 in 230 lbs 30.3 kg/m2 132/76 mm[Hg] Results Lab Results None recorded. Allergies Code Code System Name Reaction Severity Onset 010611 RxNorm Banana ? ? ? 67039 RxNorm Gabapentin ? ? ? 3138 RxNorm Iodine ? ? ? 6442904 RxNorm Latex ? ? ? 65864 RxNorm Metaxalone ? ? ? 8187 RxNorm Metformin ? ? ? Problems Name Status Onset Date Source ? [...] lable 03/22/1983 Vasectomy Information not avai lable Vaccine List Vaccine Type influenza, injectable, quadrivalent 12/29/2018 pneumococcal conjugate PCV 13 02/24/2018 pneumococcal polysaccharide PPV23 09/17/2006 Tdap 11/23/2007 Social History Tobacco Smoking Status Never Smoker Have you been exposed to chemicals Y Note s: muriatic acid exposure or toxins? Are you currently employed? N What is your code status? 0 Exposure to Silica N What is your level of alcohol None consumption? Do you have any pets? Y Notes: cats, sna ke, transula, scorpion, hissing co ckroaches Are you deaf or do you have serious Y Not es: has aids difficulty hearing? Exposure to Asbestos Y Notes: questions yes or no Are you blind or do you have Y Notes: gl asses difficulty seeing? Live alone or with others? with others Live alone or with others? with others Hard of hearing or deaf in one or Y Notes : bilateral hearing aides both ears? What is your level of caffeine Occasional Notes: diet peach tea in am, 1 consumption? caff soda a day Functional Status Are you blind or do you have difficulty seeing?? Yes Are you deaf or do you have serious difficulty hearing? ? Y es Past Encounters 05/26/2021 Obstructive Sleep Apnea Syndrome; Period ic Limb Movement Disorder; Cramp in Lower Limb Associated with Sleep; Daytime Hypersomnia; Health Education Given Juarez Chen MD, Board Certified Sleep Ph ysician: [address] [place] [address] [address], [place] [address], Ph. 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
</div><div>Past medical history includes non-hodgkins lymphoma 2017 s/p chemo & radiation, prostate ca s/p 2008, permanently right hemidiaphragm paralysis, type 2 diabetes, cervical spondylosis c2 to c7</div><div>
</div><div>
</div><div>PREVIOUS SLEEP EVALUATION: </div><div>
</div><div>Diagnostic PSG 03/27/2009 at weight 230 lbs/bmi 30 showed:</div><div>
</div><div>
</div><div>Mild to Moderate BRAEDEN AHI 14.5/hr; REM AHI 19.5/hr. delmi O2 84%. > 5 min O2<88%. used 3% desat criteria. min supine position sleep. PLM 40/hr. PLMai 10.6/hr.</div ><div>
</div><div>Diagnostic PSG 09/09/2020 (wt 236 lbs/bmi 31) showed:& lt;/div><div>1. Mild Obstructive Sleep Apnea associated with severe and significant nocturnal hypoxemia.</div><div>Patient has comorbid paralysis of right hemidiagphram likely contributing to low oxygen levels.</div><div>
</div><div>2. Overall AHI:8.9/hr; Overall RDI: 14.6/hr; REM AHI: 4.7/hr; Supine AHI: 28/hr; Right</div><div>
</div><div>Lateral AHI:8 /hr; Left Lateral AHI: 4/hr; Prone AHI: N/A/hr.</div>&l t;div>
</div><div>3. Mean SpO2: 87% and Delmi SpO2: 50% on Room Air; 259.4 mi nutes spent with SpO2 less than or equal to 88% on Room Air.</div><div>
</div ><div>4. Severe Periodic Limb Movement Disorder with significant arousals. PLM index 53/hr.PLM arousal index 5/hr.</div><div>
</div><div> </div><div&g t;TODAY: On apap 7 to 16cm via KMP, Resmed machine via AirFit F30 I full facemask, DME is [facility]</div><div>
</div><div>Patient was finally able to get the Airfit F 30i fullface mask from [employer] and notes this is a much better more comfortable mask for him and he is now finally able to use his machine</div><div>
</div><div>Patientunfortunately had a setback with his CPAP therapy, he had new onset of 6 dental cavities, previouslyhas not had issues with this, which he and his dentist attributed to CPAP therapy. He did turn up his humidifier, and confirmed the air that is coming is here mid, and is using Biotene dry mouth wash. He does wake up with a dry mouth, of note he finds himself waking up with his mouth on the bottom of his AirFit F30 facemask, so likely the jaw is dropping below the shelf of the mask.</div><div >
</div><div>He does note still having improved sleep quality with less night time awakenings. Has not had improvement in his daytime sleepiness even during periods when he was able to use CPAP nightly.

Additionally his really dislikes the noise from the machine, she is a light sleeper herself and has a hard time adjusting to sleeping with the CPAP despite sharing a ty-size bed.</div><div>
</div><div>Continues to have shortness of breath during the day even at rest, still thinks this is due to long Covid, but has not been able to get into the long Covid clinic.</div> Review of Systems ? Notes: <div>A 14-point <strong>REVI EW OF SYSTEM</strong> was obtained and reviewed, includes CONSTITUTIONAL, EYE S, ALLERGY, NEUROLOGIC, ENDOCRINE, GI, CARDIOVASCULAR, SKIN, MSK, E NT, , RESPIRATORY, HEMATOLOGIC, PSYCH systems. Pertinent symptoms are discu ssed in history, otherwise negative.</div><div>Fatigue< /div><div>
</div><div>Dry mouth, dental cavities as above</div><div>
</div><div>Shortness of breath with exertion and at rest</div><div>
</div><di v>Heartburn</div><div>
</div><div>Constipation, occasionally</div><div>
& lt;/div><div>Nocturia x1</div><div>
</div><div> Headaches, and lightheadedness, numbness tingling in fingers of left hand</div ><div>
</div><div>Movements in sleep</div><div>
</div><d iv>Joint pain in neck and left shoulder</div><div>
</div ><div>Muscle tightness muscle cramps in calves fingers and feet</div><div>< br></div><div>Muscle weakness in thighs</div><div>
</div>< div>Pain in his neck and shoulders and hips</div><div>
</div><di v>He is on medications for anxiety and depression and has occasional insomnia< /div><div>
</div><div>Skin rash on back and scalp</div><div>
</div><d iv>He does note that even though he likes his new mask the noise that is from the exhalation port on the mask wake up his , who he notes is a light slee per</div><div>
</div> Physical Exam ? Notes: <div>GENERAL: {{chronically ill appearing well appearing#}}, appearing {{older than younger than stated#}} age, no acute distress, {{normal tall lean obese#}} build</div><div>HEENT: atraumatic skull, anicteric</div><div>RESPIRAT ORY: quiet respiration, able to speak in full sentences without dyspnea, n o accessory muscle use, </div><div>SKIN: no facial skin rash, no facial skin le sions</div><div>PSYCHIATRIC: well groomed, fluent speech, good insight, linear thought process, good eye contact, {{flat balanced#}} affect</d iv><div>NEUROLOGIC: alert, oriented, symmetric facial expression</div><div>
</div><div><strong>Clinical Data Reviewed:</strong></div><div >
</div><div>1. {{Modified Pediatric Countyline Sleepiness Scale Countyline Sle epiness Scale*}}: 19 out of {{21 due to not driving 24#}}.</div><div>
</div><div>2. {{Sleep study results not available, requested Unable to obtain sleep study reports No sleep study reports Sleep study results as above.#}}</div><div>
</div><div>3. Machine Download Data:</div><div>{{R esmed AirSense 10 Auto CPAP* Resmed AirSense 10 Auto BIPAP Respironics Dream station Auto CPAP Respironics Dreamstation Auto BIPAP}}</div><div>PAP Settin gs: {{Auto BIPAP CPAP BIPAP Auto CPAP#}} 7 to 16 CmH2O</div><div>Date range: 04/11/2021 to 05/10/2021, he stopped using his machine a few weeks ago due to the concern about the dental cavities after seeing his dentist</div><div ><strong>Days with Usage >=4 hours: </strong>{{Over 70 100 97#}} <strong> % (used for 29 out of 30 days)</strong></div><div> <strong>Avg Usage per Day Used: </strong>{{1 2 3 4 5* 6 7 8 9 10}}<strong> Hours </strong>{{0 20#}}<strong> Minutes</strong></div><div>M deja/Median Pressure: {{number___ 10.9#}} cmh2O</div><div>90th-tile/95 th-tile Pressure: {{number___ 14.4#}} cmH2O</div><div>{{Median-90t h%tile Leak:* Leak:}} {{Not significant Significant leak 13/62 LPM-similar to last visit#}}</div><div><strong>A verage AHI: </strong>{{enter 1.6#}}<strong> per hour</strong></div><div>
</div><div>
</div><div>4. {{Lab results as outlined. * Labs pending.}}B UN 18/Cr 1.12 09/2019</div><div>{{Sleep log reviewed, consistent with hi story. Sleep log reviewed.}}</div><div>
</div>
--- OUTSIDE RECORDS SUMMARY | 2021-08-22 00:28 | XMS_ITS | Encounter Summary ---
:1955 Author Care Team Providers Name Role Phone Alli Calvillo ([facility] Internal Medicine) Primary Care Provi kristel [phone] [facility] Medical Records OTHER [phone] [facility] OTHER [phone] Reason for Visit None recorded. Assessment and Plan Assessment Note I provided greater than 40 minutes in t he care of this patient, more than half the time was spent in [id number] counseling. 1. Obstructive sleep apnea syndrome 07/29/20: [...] I gave him a chinstrap today w [facility] I advised him to use with the full facemask. We talked about creative ideas to help his sleep, including using earplugs. 06/30/21: Patient states that he did try the chin strap with his cpap since last visit, did not tolerate. wishes to D/C CPAP. ping concern re: dental cavities wants to improve his sleep quality: on his own has been taking Melatonin 10m g nightly. Recommended to patient to use Natrol Sustained release 3mg to 10mg Melatonin. Being woken up at night by going to the bathroom, tossing and turning. He also thinks he has apneas. He is waiting for eval for procedure for diaphgramatic paralysis. D/W patient to start oxygen since he is not tolerating cpap. communicated w/ Dr. Wilkinson on phone re: testing and titration supp O2. ? sleep apnea: care instructions ? discontinuation order* - discontinue CPAP ? neurosurgery research director referral - Had communic ation with Dr Wilkinson re: pt d/c cpap due to intolerance. main concern is the nocturn al hypoxemia > 250min O2<=88% on last year's PSG. he's ok w/ trying supplemental O2. Please assume eval/management of this. I will keep adjusting his modafinil dose til it is effective so will see him for at least 1 more sleep visit. TY! 2. Periodic limb movement disorder 07/29/20 severe [...] if we do that in the future 06/30/21: he's already on very high dose lyrica 200mg including qHS dose. despite freq PLMs not freq arousals so this may be optimized. there is a urge to collect items and he's in DA/counseling for this , would try to avoid dopaminergic agonis t due to this 3. Cramp in lower limb associated with sleep 02/10/2021: At next visit we will discu ss whether adding magnesium for his muscle cramps may be appropriate 06/30/21: States that he is still having leg cramps on Mg 1 tab (unk dose) Takes sub lingual mg leg tablets PRN twice a week they work, not exactly sure what's in those. Advised patient to start taking D octors Best High Absorption Mg 100mg, ta ke 2 to 4 tablets. 4. Daytime hypersomnia 02/10/2021: Despite 4 weeks of good CPA P compliance and excellent treatment AHI reduction, patient still has an [place] Sleepiness Scale reported at 17 out of [...] needed for driving or other special occasions. 06/30/21: Patient has noticed an improvem ent with his hypersomnia, but feels like the dosage could be higher. ex: Took Modafinil 100mg at 9am. ESS today 18.. has been just taking 100mg daily. Advised kirti stern that he can go up to 200 to 300mg d aily to see if this will be effective. will do one more Rx so he has enough til 3 month visit. ? modafinil 200 mg tablet 5. Health education given ? learning about sleeping well Discussion Note Remember to always take precautions on drowsy driving. If you experience sleepiness while driving, find a safe area to chain puller and take a break. Research suggests [...] Sleep Clinic. Plan of Care Patient Instructions follow up manager Natrol Melatonin Sustained Rele ase at 3mg [...] up in 3 months, sooner if needed. Reminders Provider Appointments Office 30 11/03/2021 Juarez Chen MD, Board 11:15AM Certified Sleep Physician Lab None recorded. ? ? Referral Administrative Assistant Office Manager Referral 06/30/2021 Debbie Wilkinson MD Procedures None recorded. ? ? Surgeries None [...] Ultra-Fine 0.3 mL 31 gauge x /16 ? USE THREE TIMES A DAY BD Ultra-Fine Mini Pen Needle 31 gauge x 3/16 ? USE DIRECTED FOUR TIMES DAILY esomeprazole [...] BMI Blood Pressure 6 ft 1 in 222 lbs 29.3 kg/m2 124/72 mm[Hg] Results Lab Results None recorded. Allergies Code Code System Name Reaction Severity Onset 558475 RxNorm Banana ? ? ? 31990 RxNorm Gabapentin ? ? ? 8345 RxNorm Iodine ? ? ? 3715200 RxNorm Latex ? ? ? 95609 RxNorm Metaxalone ? ? ? 6809 RxNorm Metformin ? ? ? Problems Name [...] Note s: muriatic acid exposure or toxins? What is your level of alcohol None consumption? Live alone or with others? with others Live alone or with others? with others Exposure to Asbestos Y Notes: questions yes or no Are you currently employed? N Do you have any pets? Y Notes: cats, sna ke, transula, scorpion, hissing co ckroaches Are you blind or do you have Y Notes: gl asses difficulty seeing? What is your code status? 0 Are you deaf or do you have serious Y Not es: has aids difficulty hearing? Hard of hearing or deaf in one or Y Notes : bilateral hearing aides both ears? What is your level of caffeine Occasional Notes: diet peach tea in am, 1 consumption? caff soda a day Exposure to Silica N Functional Status Are you blind or do you have difficulty seeing?? Yes Are you deaf or do you have serious difficulty hearing? ? Y es Past Encounters 06/30/2021 Obstructive Sleep Apnea Syndrome; Period ic Limb Movement Disorder; Cramp in Lower Limb Associated with Sleep; Daytime Hypersomnia; Health Education Given Juarez Chen MD, Board Certified Sleep Ph ysician: [address] [place] [address] [address], [place] [address], Ph. 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
</div><div>Past medical history includes non-hodgkins lymphoma 2017 s/p chemo & radiation,prostate ca s/p 2007, permanently right hemidiaphragm paralysis, type 2 diabetes, cervical spondylosis c2 to c7</div><div>
</div><div>
</div><div>PREVIOUS SLEEP EVALUATION: </div><div>
</div><div>Diagnostic PSG 03/27/2009 at weight 230 lbs/bmi 30 showed:</div><div>
</div><div>
</div><div>Mild to Moderate BRAEDEN AHI 14.5/hr; REM AHI 19.5/hr. alphonse O2 84%. > 5 min O2<88%. used 3% desat criteria. min supine position sleep. PLM 40/hr. PLMai 10.6/hr.</di v><div>
</div><div>Diagnostic PSG 09/09/2020 (wt 236 lbs/bmi 31) showed: </div><div>1. Mild Obstructive Sleep Apnea associated with severe and significant nocturnal hypoxemia.</div><div>Patient has comorbid paralysis of right hemidiagphram likely contributing to low oxygen levels.</div><div>
</div><div>2. Overall AHI: 8.9/hr; Overall RDI: 14.6/hr; REM AHI: 4.7/hr; Supine AHI: 28/hr; Right</div><div>
</div><div>Lateral AHI:8 /hr; Left Lateral AHI: 4/hr; Prone AHI: N/A/hr.</div><div>
</div><div>3. Mean SpO2: 87% and Alphonse SpO2: 50% on Room Air; 259.4 minutes spent with SpO2 less than or equal to 88% on Room Air.</div><div>
</div><div>4. Severe Periodic Limb Movement Disorder with significant arousals. PLM index 53/hr. PLM arousal index 5/hr.</div><div>
</div><div> </div><div>TODAY: On apap 7 to 16cm via KMP, Resmed machine via AirFit F30 I full facemask, DME is [facility]</ div><div>
</div><div>
</div><div>Patient DCed CPAP and looking to return. wants to discuss other options.</div><div>
</div><div>Tried using the chin strap with his cpap, did not tolerate it. mask/chin strap would shift. </div><div>He has concerns about dental cavities confirmed w/ his dentist, and believes that cpap could be causing it. </div><div>
</div><div>Patient reports that he is not really using CPAP. States that when he does use it, it is still waking up his . </div><div>
</div><div>Being woken up at night by going to the bathroom, tossing and turning. He also thinks he has apneas.</div><div> </div><div>Is taking 10mg of melatonin nightly. </div><div>
</div><div>Likes to collect items. Sees Marilin Hensley for counseling, also in [facility] [employer].</div> Review of Systems ? Notes: <div>A 14-point [...] /div><div>
</div><div>Skin rash on back and scalp</div><div>
</div> Physical Exam ? Notes: <div>GENERAL: {{chronically [...]
</div><div><strong>Clinical Data Reviewed:</strong></div><div >
</div><div>1. {{Modified Pediatric [place] Sleepiness Scale [place] Sle epiness Scale*}}: 18 out of {{21 due to not driving 24#}}.</div><div>
</div><div>2. {{Sleep study results not available, requested Unable to obtain sleep study reports No sleep study reports Sleep study results as above.#}}</div><div>
</div><div>3. Machine Download Data: stopped using , last avail data</div><div>{{Resmed AirSense 10 Auto CPAP* Resmed AirSense 1 0 Auto BIPAP Respironics Dreamstation Auto CPAP Respironics Dreamstatio n Auto BIPAP}}</div><div>PAP Settings: {{Auto BIPAP CPAP BIPAP Auto CPAP#} } 7 to 16 CmH2O</div><div>Date range: 03/29/21 to 06/26/21 </div><div>
</di v><div><strong>Days with Usage >=4 hours: </strong>{{Over 70 100 44#}} <strong> % (used for 46 out of 90 days)</strong></div><div><st azra>Avg Usage per Day Used: </strong>{{1 2 3 4 5* 6 7 8 9 10}}<strong> Hours </strong>{{0 3#}}<strong> Minutes</strong></div><div>M deja/Median Pressure: {{number___ 10.9#}} cmh2O</div><div>90th-tile/95 th-tile Pressure: {{number___ 14.2#}} cmH2O</div><div>{{Median-90t h%tile Leak:* Leak:}} {{Not significant Significant leak 11/57 LPM-similar to last visit#}}</div><div><strong>A verage AHI: </strong>{{enter 1.5#}}<strong> per hour</strong></div><div>
</div><div>
</div><div>4. {{Lab results as outlined. * Labs pending.}}B UN 18/Cr 1.12 09/2019</div><div>{{Sleep log reviewed, consistent with hi story. Sleep log reviewed.}}</div><div>
</div>
--- NOTE | 2021-08-22 10:14 | DI.CT_ITS ---
Exam(s) CT CHEST WO EXAM: CT CHEST WO CLINICAL HISTORY: DIAPHRAGM DYSFUNCTION, J98.6, DYSPNEA, SURGICAL PLANNING. TECHNIQUE: Imaging protocol: Axial computed tomography images were obtained and coronal and sagittal reformatted images were created and reviewed. COMPARISON: CT CT CHEST HIGH RESOLUTION from 12/02/2020 FINDINGS: Tracheobronchial tree: Patent where visualized. Pulmonary parenchyma: There are stable calcified and noncalcified pulmonary nodules present. The lar gest noncalcified pulmonary nodule measures 5 mm. There is stable scarring or atelectasis in the rig ht lung base. No focal consolidating infiltrates are seen. No architectural distortion. Mediastinum and Prabha: No dominant adenopathy or fluid collection. The esophagus is unremarkable. Thyroid gland: Unremarkable. Pleura: No effusion or pneumothorax. Heart: The heart is not dilated. Coronary artery calcifications are present. No pericardial effusion . Aorta: Thoracic aorta non-dilated. Atherosclerosis is present. Upper abdomen: Status post cholecystectomy. Stable renal cyst. Lymph nodes: Within normal limits. Soft tissues: Unremarkable. Bones:Within normal limits for the patient's age. The patient has a right shoulder replacement. IMPRESSION: 1. Stable calcified and noncalcified pulmonary nodules. The largest noncalcified pulmonary nodule me asures 5 mm. No routine follow-up is recommended. (Estefani et al, 2017). 2. No acute pulmonary process. RADIATION DOSE DELIVERED: 669.4mGy.cm Total DLP 669.4mGy.cm Total DLP DATA REPOSITORY: All CT scans at this facility are submitted to the National Radiology Data Registry (NRDR) Dose Index Registry (DIR) with the [employer] (ACR). RADIATION OPTIMIZATION: All CT scans at this facility use at least one of these dose optimization te chniques: automated exposure control; mA and/or kV adjustment per patient size (includes targeted exa ms where dose is matched to clinical indication); or iterative reconstruction.
== END ==
PROVIDERS: PCP Family Medicine; Visit Provider Thoracic Surgery (Cardiothoracic Vascular Surgery)
DX: J98.6 Disorders of diaphragm (principal); R06.09 Other forms of dyspnea; R91.8 Other nonspecific abnormal finding of lung field; Z90.49 Acquired absence of other specified parts of digestive tract
CPT/HCPCS: 71250

== ENCOUNTER 2021-10-14 15:00 | Outpatient (RCR) | payer MEDICARE, SELFPAY | END 2021-10-19 23:59 | disposition home or self-care (01) | LOC: PRC 15:00 | PROVIDERS: PCP Family Medicine; Visit Provider Student in an Organized Health Care Education/Training Program | DX: J96.10 Chronic respiratory failure, unspecified whether with hypoxia or hypercapnia (principal); J98.4 Other disorders of lung | CPT/HCPCS: 94626; G0424 ==

== ENCOUNTER 2021-11-04 01:59 | Outpatient (CLI) | payer MEDICARE, SELFPAY ==
--- NOTE | 2021-11-07 15:14 | W.PFT ---
Date of service: 11/06/21 Time of Service: 15:15 Pulmonary Function Test Result Requesting Provider Minh Indications: Nocturnal hypoxia Note: Overnight Oximetry Amount of time analyzed: 08:59 Number of minutes under 88%: 13.7 JEOVANY: 9.0 Appearance of oxygen saturation pattern: Rapid increased and decreases in O2 sat indicative or possible BRAEDEN. Recommendation:Can consider PSG if not already completed or nocturnal oxygen with a repeat study. Miriam Wilkinson MD Pulmonary & Critical Care Medicine Clinical Correlation therefore is recommended.
== END 2021-11-04 02:00 | disposition home or self-care (01) ==
LOC: RT 01:59
PROVIDERS: PCP Family Medicine; Visit Provider Student in an Organized Health Care Education/Training Program
DX: M62.81 Muscle weakness (generalized) (principal); G70.89 Other specified myoneural disorders; J98.9 Respiratory disorder, unspecified
CPT/HCPCS: 94762

== ENCOUNTER → 2021-11-05 09:47 | Outpatient (BNVA) | payer MEDICARE, SELFPAY | PROVIDERS: PCP Family Medicine; Referring Provider Family Medicine; Visit Provider Psychiatry & Neurology Neurology | DX: J98.6 Disorders of diaphragm (principal); G70.9 Myoneural disorder, unspecified; E11.43 Type 2 diabetes mellitus with diabetic autonomic (poly)neuropathy; E11.65 Type 2 diabetes mellitus with hyperglycemia; Z79.4 Long term (current) use of insulin; M48.02 Spinal stenosis, cervical region; G25.0 Essential tremor | CPT/HCPCS: 99214 ==

== ENCOUNTER 2021-11-18 15:00 | Outpatient (RCR) | payer MEDICARE, SELFPAY | END 2021-11-19 23:59 | disposition home or self-care (01) | LOC: PRC 15:00 | PROVIDERS: PCP Family Medicine; Visit Provider Student in an Organized Health Care Education/Training Program | DX: Z51.89 Encounter for other specified aftercare (principal); G54.0 Brachial plexus disorders | CPT/HCPCS: 94626; G0424 ==

== ENCOUNTER 2021-11-27 11:12 | Outpatient (RCR) | payer MEDICARE, SELFPAY ==
--- NOTE | 2021-12-18 12:45 | PRPHASE3_ITS ---
Date of service: 11/25/21 Cardiopulmonary Rehabilitation Note Narrative: Pulmonary Rehab Discharge The patient completed the prescribed pulmonary rehab program at [facility]. Below is a summary of the patients pre program and post program data. Category Initial Discharge Weight 223 224 KONRAD index 3 2 6MWT Distance 925ft 1350ft 6MWT METs 2.3 3.0 Peak METs during AL 4.1 3.9 mMRC 2 2 Ernest RQ 61 43 PHQ9 10 6 The patient has been offered to take part in the maintenance program of pulmonary rehab if they are interested in continuing.
== END 2021-12-19 23:59 | disposition home or self-care (01) ==
LOC: PRC 11:12
PROVIDERS: PCP Family Medicine; Visit Provider Student in an Organized Health Care Education/Training Program
DX: J98.8 Other specified respiratory disorders (principal); G54.0 Brachial plexus disorders
CPT/HCPCS: G0424

== ENCOUNTER → 2022-02-16 01:34 | Outpatient (CLI) | payer MEDICARE, SELFPAY ==
--- NOTE | 2022-02-16 07:30 | DI.RAD_ITS ---
Exam(s) XR HIP RT COMPLETE AP PELVIS EXAM: XR HIP RT COMPLETE AP PELVIS INDICATION: RT HIP PAIN, ? ARTHRITIS, M25.551. COMPARISON: No exams were available for comparison TECHNIQUE: 2D digital imaging was performed. Two views. FINDINGS: the hip joint spaces are maintained. There is mild superior acetabular spurring on the right. The le ft hip joint space is maintained. SI joints are unremarkable. There are surgical clips bilaterally in the pelvis. There are enthesophytes at the iliac wings. . IMPRESSION: Mild degenerative changes of the right hip DATA REPOSITORY: RADIATION DOSE DELIVERED:
== END ==
PROVIDERS: PCP Family Medicine; Visit Provider Family Medicine
DX: M25.551 Pain in right hip (principal); M16.11 Unilateral primary osteoarthritis, right hip
CPT/HCPCS: 73502

== ENCOUNTER → 2022-04-27 11:03 | Outpatient (BNVA) | payer MEDICARE, SELFPAY | PROVIDERS: PCP Family Medicine; Referring Provider Family Medicine; Visit Provider Student in an Organized Health Care Education/Training Program | DX: M16.11 Unilateral primary osteoarthritis, right hip (principal); M50.13 Cervical disc disorder with radiculopathy, cervicothoracic region; M48.02 Spinal stenosis, cervical region; E11.9 Type 2 diabetes mellitus without complications; G70.9 Myoneural disorder, unspecified | CPT/HCPCS: 99213 ==

== ENCOUNTER 2022-08-02 13:27 | Emergency (ER) | payer MEDICARE, SELFPAY ==
[2022-08-02] VITALS (32 sets, daily range): BP systolic 123–135; BP diastolic 67–97; PULSE 84–103; RESP 12–33; TEMP 37; O2SAT 87–95
--- NOTE | 2022-08-02 13:30 | RT.EKG_ITS ---
APPROVED REPORT Exam: Resting ECG Reason for Exam: sob Patient Location: E HR:97 bpm ECG Measurements Heart Rate 97 AXIS SD 174 P 87 QRSd 104 QRS 42 QT 346 T 139 QTc 439 Conclusion Sinus rhythm...normal P axis, V-rate 60- 99 Nonspecific T abnormalities, lateral leads...T <-0.10mV, I aVL V5 V6 Normal sinus rhythm at a rate of 97 with interventricular conduction delay. ST segment depressions i n V2 and V3. T wave inversion in aVL. No prior for comparison.
--- NOTE | 2022-08-02 13:45 | DI.RAD_ITS ---
Exam(s) XR PORTABLE CHEST AP EXAM: XR PORTABLE CHEST AP CLINICAL HISTORY: Shortness of breath TECHNIQUE: 2D digital imaging was performed. COMPARISON: CT CT CHEST WO from 08/22/2021 FINDINGS: Exam is quite limited by expiratory changes. LUNGS: Expiratory changes. Basilar infiltrates cannot be excluded. No gross evidence effusion. No pneumothorax. HEART: Evaluated due to expiratory changes. Pulmonary vascular. Prominent which likely secondary to expiratory changes. AORTA: Normal diameter. BONES: Right shoulder prosthesis. Soft tissues: Unremarkable. IMPRESSION: Limited exam. Infiltrates versus mild pulmonary edema not excluded. Recommend repeat examination. DATA REPOSITORY: RADIATION DOSE DELIVERED:
--- NOTE | 2022-08-02 13:47 | ED.GENADUL_ITS ---
Discharge Plan Disposition Patient Disposition: Home Discharge Details Clinical Impression: Shortness of breath, Acute bacterial conjunctivitis of right eye, Normocytic anemia, Community acquired pneumonia of left lung Primary Care Provider: Alli Calvillo ED Provider: Paolo Huber [facility] Meds and New Rx's Prescriptions: New amoxicillin-pot clavulanate 875-125 mg tablet 1 tab PO BID 5 Days Qty: 10 0RF doxycycline hyclate 100 mg capsule 100 mg PO BID 5 Days Qty: 10 0RF Continued glucagon HCl [Glucagon (HCl) Emergency Kit] 1 mg recon soln 1 mg subcut Q20M PRN (Reason: hypoglycemia) Qty: 1 3RF Rx Instructions: until target blood sugar attained ibuprofen 200 mg tablet 400 mg PO TID PRN PRN Humulin R U-500 (Conc) Kwikpen 500 unit/mL (3 mL) insulin pen See Rx Instructions subcut TID MDD 160 units Qty: 9 6RF Rx Instructions: subcutaneously three times a day; 85U am, 20 units at noon, 80 units QHS; Can increase noon dose to 15 units if no hypoglycemia after one month, To keep HbA1c less than 6.5%, Dx: Ell.65 insulin glargine [Lantus Solostar U-100 Insulin] 100 unit/mL (3 mL) insulin pen 50 unit subcut QAM Qty: 15 3RF amoxicillin-pot clavulanate 875-125 mg tablet 1 tab PO BID 7 Days Qty: 14 0RF cholecalciferol (vitamin D3) [Vitamin D3] 2,000 UNIT capsule 2,000 unit PO DAILY potassium gluconate 99 MG tablet 99 mg PO DAILY Rx Instructions: for leg cramps cyanocobalamin (vitamin B-12) [Vitamin B-12] 1,000 MCG tablet 1,000 mcg PO DAILY Qty: 100 albuterol sulfate [ProAir HFA] 90 mcg/actuation HFA aerosol inhaler See Rx Instructions inhalation DIRECTED Rx Instructions: inhalation as directed; (DME) Insulin Syringe MicroFine 1 mL 27 gauge x 5/8 syringe 1 ea Miscellaneous BID Qty: 300 6RF Rx Instructions: For DM E11.9 to maintain A1C<7. BD ultrafine .3ml 31G 8mm Victoza 3-Shyam 0.6 mg/0.1 mL (18 mg/3 mL) pen injector 1.8 mg subcut DAILY 30 Days Qty: 27 6RF Rx Instructions: Dx: E11.65 venlafaxine 225 mg tablet extended release 24hr See Rx Instructions .ROUTE .COMPLEX Qty: 90 3RF Dose Instruction: TAKE 1 TABLET BY MOUTH DAILY Rx Instructions: TAKE 1 TABLET BY MOUTH DAILY Farxiga 10 mg tablet 10 mg PO DAILY Qty: 90 3RF (DME) Oxygen Tank See Rx Instructions .Route Qty: 1 0RF Rx Instructions: Use 2Lpm at night as directed naltrexone 50 mg tablet 50 mg PO DAILY Qty: 90 3RF atorvastatin 40 mg tablet 40 mg PO DAILY Qty: 90 3RF esomeprazole magnesium 40 mg capsule,delayed release(DR/EC) 40 mg PO DAILY Qty: 90 3RF (DME) FreeStyle Izabella 2 Export Misc See Rx Instructions .Route Qty: 1 0RF Rx Instructions: As directed for DM control to keep a1c at or under 7.0 pregabalin 200 mg capsule 200 mg PO BID Qty: 180 3RF Stiolto Respimat 2.5-2.5 mcg/actuation mist 2 puff inhalation DAILY Qty: 4 12RF trazodone 50 mg tablet 50 mg PO QHS melatonin 5 mg capsule 5 mg PO HS modafinil 200 mg tablet 400 mg PO DAILY Qty: 180 3RF (DME) FreeStyle Izabella 2 Sensor Kit See Rx Instructions .Route Qty: 6 3RF Rx Instructions: As directed for DM control and to keep A1c at or below 7 (DME) pen needle, diabetic [BD Ultra-Fine Mini Pen Needle] 31 gauge x 3/16 needle 0 .Route Qty: 200 11RF Rx Instructions: As directed QID, to keep HbA1c less than 7; on insulin; E11.49 magnesium sulfate 100 mg Capsule 100 mg PO DAILY Discharge Instructions Instructions: Pneumonia (ED) Additional Instructions: Please read all of the information that accompanies these instructions. You were seen in the emergency department for your cough and shortness of breath. You are diagnosed with pneumonia. Please schedule an appointment with your primary care provider later this week. Please return to the emergency department if if you develop difficulty breathing cannot eat or drink or have any other concerns. Please take these antibiotics that you have received as directed. Discharge Data Discharge Date/Time-TO BE ENTERED AT DEPARTURE: 08/02/22 17:05 Medical Decision Making This is an uncomfortable appearing normothermic and not tachycardic but hypoxic 67-year-old male with worsening shortness of breath and productive cough concerning for pneumonia. Patient does have a history of primary cutaneous diffuse large B cell lymphoma. 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 Patient has a heart rate elevated above 90 and may have a new oxygen requirements with concern for the possibility of sepsis so I ordered 2 sets of blood cultures prior to treat empirically with ceftriaxone and vancomycin. We will check a lactate. We will also check a D-dimer to assess for risk of PE. Concerning the patient's red eye he is receiving appropriate erythromycin ointment for bacterial conjunctivitis. No significant headache nor eye pain to suggest increased risk for endophthalmitis. Given chest pain will obtain a troponin. We will also obtain a venous blood gas to assess for concurrent hypercarbia. We will also swab for RSV, flu, and influenza. I turned oxygen off to assess sat on room air as patient wears only nocturnal oxygen,. 2:45 PM Respiratory viral swab negative for COVID, influenza, and RSV. Venous blood gas with no acidemia nor hypercarbia. Room air saturation within normal limits. 3:51 PM Normal reassuring magnesium. D-dimer mildly elevated at 649 ng/mL FEU however will defer CTA to assess for PE as this is technically negative based on age- adjusted criteria. Troponin negative. Based on the duration of time since symptoms began we will defer repeat troponin testing at this point. Virtual ra diology read chest x-ray shows mild interstitial edema versus pneumonitis. Comprehensive metabolic panel with mildly elevated BUN but no JOHNNY. Normal reassuring lactate. CBC with mild normocytic anemia. No leukocytosis. No thrombocytopenia. Normocytic anemia more pronounced compared to prior. 4:20 PM Patient had no obvious infiltrate on chest x-ray however based on his abnormal lung ultrasound his cough, elevated tempature at home, and shortness of breath we will treat empirically for community-acquired pneumonia with amoxicillin clavulanic acid and doxycycline based on comorbidities. His PORT score was 77 points making him appropriate for outpatient versus inpatient treatment. Given that he is not requiring supplemental oxygen I feel that empiric trial of expectant outpatient management is warranted. I discussed at length with the patient and his that if his symptoms worsen and if he could not tolerate p.o. if he developed any fevers or if they had any other concerns that they should return to the emergency department. I asked EDWARD Zulay to help arrange PCP fu within the week. Chronic conditions affecting the care of the patient: Diabetes and hemidiaphragm paralysis History obtained from an outside historian: Patient's External record review: [facility] EMR Diagnostic interpretations performed by me: [Per my independent interpretation chest x-ray shows:] No acute cardiopulmonary process [Per my independent interpretation EKG shows:] Normal sinus rhythm at a rate of 97 with interventricular conduction delay. ST segment depressions in V2 and V3. T wave inversion in aVL. No prior for comparison. Medications: Amoxicillin clavulanic acid & doxycycline Social determinants of health affecting disposition: N/A Management discussed with: N/A Treatment/interventions considered: Hospitalization but deferred Response to therapies provided: N/A HPI General Date/Time Provider Initiated Documentation: 08/02/22 13:47 . HPI Narrative: This is a 67-year-old male with a history of right hemidiaphragm paralysis and chronic respiratory failure with hypoxia requiring 2 L nocturnal oxygen now with increasing shortness of breath and cough with a room air saturation at home of 88%. Patient notes that for the past several days he has had a cough productive of brown sputum. He is also receiving treatment with outpatient erythromycin from his shoe maker for right eye bacterial conjunctivitis. He does not wear contacts but has recently had intraocular treatments with his shoe maker in [place]. He reported a temperature up to 100 ?F as taken orally earlier today. He has been taking ibuprofen. He has never had a PE nor DVT. He has remote history of non-Hodgkin's lymphoma. He is no longer on chemotherapy and has been in remission since 2017. No abdominal pain nausea nor vomiting. Patient does have some pain in the left side of his chest that has been associated with his cough. Related Data Home Medications Medication Instructions Recorded Confirmed cholecalciferol (vitamin D3) 50 2,000 unit PO DAILY 06/15/12 08/02/22 mcg (2,000 unit) capsule (Vitamin D3) potassium gluconate 595 mg (99 mg) 99 mg PO DAILY 08/29/13 08/02/22 tablet cyanocobalamin (vitamin B-12) 1,000 mcg PO DAILY #100 tabs 11/03/16 08/02/22 1,000 mcg tablet (Vitamin B-12) magnesium sulfate 100 mg capsule 100 mg PO DAILY 02/22/19 08/02/22 albuterol sulfate 90 mcg/actuation See Rx Instructions inhalation 10/28/20 08/02/22 aerosol inhaler (ProAir HFA) DIRECTED Insulin Syringe MicroFine 1 mL 27 #300 SYRGS 11/21/20 06/29/22 gauge x 5/8 (insulin syringe-needle U-100) glucagon HCl 1 mg solution for 1 mg subcut Q20M PRN hypoglycemia 05/06/21 08/02/22 injection (Glucagon (HCl) #1 ea Emergency Kit) liraglutide 0.6 mg/0.1 mL (18 mg/3 1.8 mg (0.3 mL) subcut DAILY 30 08/28/21 08/02/22 mL) subcutaneous pen injector days #27 mL (Victoza 3-Shyam) dapagliflozin 10 mg tablet 10 mg PO DAILY #90 tabs 10/31/21 08/02/22 (Farxiga) venlafaxine 225 mg tablet,extended See Rx Instructions .Route 10/31/21 08/02/22 release 24 hr .COMPLEX #90 tabs Oxygen #1 ea 11/11/21 06/29/22 atorvastatin 40 mg tablet 40 mg PO DAILY #90 tabs 12/01/21 08/02/22 esomeprazole magnesium 40 mg 40 mg PO DAILY #90 caps 12/01/21 08/02/22 capsule,delayed release naltrexone 50 mg tablet 50 mg PO DAILY #90 tabs 12/01/21 08/02/22 flash glucose scanning reader #1 ea 01/22/22 06/29/22 (FreeStyle Izabella 2 Export) pregabalin 200 mg capsule 200 mg PO BID for neuropathic pain 02/27/22 08/02/22 #180 caps tiotropium 2.5 mcg-olodaterol 2.5 2 puff inhalation DAILY #4 grams 03/31/22 08/02/22 mcg/actuation mist for inhalation (Stiolto Respimat) ibuprofen 200 mg tablet 400 mg PO TID PRN PRN 04/13/22 08/02/22 melatonin 5 mg capsule 5 mg PO HS 05/01/22 08/02/22 trazodone 50 mg tablet 50 mg PO QHS 05/01/22 08/02/22 insulin glargine 100 unit/mL (3 50 unit (0.5 mL) subcut QAM #15 mL 05/11/22 08/02/22 mL) subcutaneous pen (Lantus Solostar U-100 Insulin) insulin regular hum U-500 conc 500 See Rx Instructions subcut TID #9 05/11/22 08/02/22 unit/mL(3 mL) subcut pen (Humulin mL R U-500 (Conc) Insulin Kwikpen) modafinil 200 mg tablet 400 mg PO DAILY #180 tabs 05/12/22 08/02/22 flash glucose sensor (FreeStyle #6 ea 06/01/22 06/29/22 Izabella 2 Sensor kit) pen needle, diabetic 31 gauge x #200 ea 06/04/22 06/29/2216 (BD Ultra-Fine Mini Pen Needle) amoxicillin 875 mg-potassium 1 tab PO BID 7 days #14 tabs 06/22/22 06/29/22 clavulanate 125 mg tablet amoxicillin 875 mg-potassium 1 tab PO BID 5 days #10 tabs 08/02/22 clavulanate 125 mg tablet doxycycline hyclate 100 mg capsule 100 mg PO BID 5 days #10 caps 08/02/22 Previous Rx's Medication Instructions Recorded Insulin Syringe MicroFine 1 mL 27 #300 SYRGS 11/21/20 gauge x 5/8 (insulin syringe-needle U-100) glucagon HCl 1 mg solution for 1 mg subcut Q20M PRN hypoglycemia 05/06/21 injection (Glucagon (HCl) #1 ea Emergency Kit) liraglutide 0.6 mg/0.1 mL (18 mg/3 1.8 mg (0.3 mL) subcut DAILY 30 08/28/21 mL) subcutaneous pen injector days #27 mL (Victoza 3-Shyam) dapagliflozin 10 mg tablet 10 mg PO DAILY #90 tabs 10/31/21 (Farxiga) venlafaxine 225 mg tablet,extended See Rx Instructions .Route 10/31/21 release 24 hr .COMPLEX #90 tabs Oxygen #1 ea 11/11/21 atorvastatin 40 mg tablet 40 mg PO DAILY #90 tabs 12/01/21 esomeprazole magnesium 40 mg 40 mg PO DAILY #90 caps 12/01/21 capsule,delayed release naltrexone 50 mg tablet 50 mg PO DAILY #90 tabs 12/01/21 flash glucose scanning reader #1 ea 01/22/22 (FreeStyle Izabella 2 Export) pregabalin 200 mg capsule 200 mg PO BID for neuropathic pain 02/27/22 #180 caps tiotropium 2.5 mcg-olodaterol 2.5 2 puff inhalation DAILY #4 grams 03/31/22 mcg/actuation mist for inhalation (Stiolto Respimat) insulin glargine 100 unit/mL (3 50 unit (0.5 mL) subcut QAM #15 mL 05/11/22 mL) subcutaneous pen (Lantus Solostar U-100 Insulin) insulin regular hum U-500 conc 500 See Rx Instructions subcut TID #9 05/11/22 unit/mL(3 mL) subcut pen (Humulin mL R U-500 (Conc) Insulin Kwikpen) modafinil 200 mg tablet 400 mg PO DAILY #180 tabs 05/12/22 flash glucose sensor (FreeStyle #6 ea 06/01/22 Izabella 2 Sensor kit) pen needle, diabetic 31 gauge x #200 ea 06/04/2206/04 (BD Ultra-Fine Mini Pen Needle) amoxicillin 875 mg-potassium 1 tab PO BID 7 days #14 tabs 06/22/22 clavulanate 125 mg tablet amoxicillin 875 mg-potassium 1 tab PO BID 5 days #10 tabs 08/02/22 clavulanate 125 mg tablet doxycycline hyclate 100 mg capsule 100 mg PO BID 5 days #10 caps 08/02/22 Allergies Allergy/AdvReac Type Severity Reaction Status Date / Time metaxalone [From Skelaxin] Allergy Mild Verified 08/02/22 14:20 iodine Allergy Unknown Skin Rash Verified 08/02/22 14:20 latex Allergy Unknown Skin Rash Verified 08/02/22 14:20 banana AdvReac Unknown Nausea Verified 08/02/22 14:20 gabapentin AdvReac Unknown Nausea Verified 08/02/22 14:20 metformin AdvReac Unknown Nausea Verified 08/02/22 14:20 General Stated Complaint: SOB KELLEY: 2 PFSH All Active Problems (Updated 08/02/22 @ 16:19 by Paolo Huber MD) Shortness of breath (Acute) Acute bacterial conjunctivitis of right eye (Acute) Normocytic anemia (Acute) Community acquired pneumonia of left lung (Acute) Acute dysfunction of both eustachian tubes (Acute) Acute sinusitis (Acute) Adenomatous polyp of colon (Acute) Pain, foot (Acute) Metatarsalgia (Acute) Nail dystrophy (Acute) Macular edema (Acute ~05/2021) 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) 06/06/21 R EYE Cataract, nuclear sclerotic, both eyes (Acute ~05/2021) Osteoarthritis of right hip (Acute) Change in voice (Acute) Essential tremor (Acute) Brain fog (Acute) Diaphragm dysfunction (Acute) Conductive hearing loss, external ear (Acute) Impacted cerumen, bilateral (Acute) Cervical stenosis of spinal canal (Acute) Shortness of breath (Acute) Neuromuscular respiratory weakness (Acute) Post-acute sequelae of COVID-19 (PASC) (Acute) Other hypersomnia (Acute) Cramp in lower extremity associated with sleep (Acute) Periodic limb movement disorder (Acute) Prostate CA (Chronic) Restrictive lung disease (Chronic) PFTs 09/08 shows moderately severe restriction Depressive disorder (Chronic 07/23/09) Bupropion renewed. Cervical spondylosis without myelopathy (Chronic) Type II diabetes mellitus with neurological manifestations, uncontrolled (Acute 04/03/14) goal A1c 9-9% per Dr Palacios Autonomic neuropathy due to diabetes (Chronic) confirmed Dr Crenshaw 11/2013; drop attack June 2015 attributed to autonomic dysfunction (Dr Chen) Barretts esophagus (Acute 10/25/14) last EGD 05/2012 [facility] Is omeprazole renewed. Brachial neuritis (Acute 01/04/09) WITH PARALYZED R HEMIDIAPHRAGM Cervical spondylosis without myelopathy (Acute 11/03/16) pain; 01/06/19 - MRI shows progression of degenerative changes and canal stenosis at C4-5. Severe facet arthropathy at the C3-4 level. Chronic pain in right shoulder (Acute 11/03/16) Compulsive shopping (Acute 08/31/14) Naltrexone renewed. Cutaneous follicle center lymphoma (Acute 07/24/16) Favor primary cutaneous, occiput, refer [facility] (Dr Gallegos) Dizziness (Acute 01/30/13) MULTIFACTORAL: EAR/PERIPHERAL NEUROPATHY, AUTONOMIC, ?ORTHOSTATIC DUE TO HYPERGLYCEMIA Hyperlipidemia (Acute 06/24/05) GOAL LDL <100 (DM) Atorvastatin renewed. Impotence, organic (Acute 12/19/08) S/P PROSTATE SURG Loc osteoarth NOS-unspec (Acute 02/20/05) Mild nonproliferative diabetic retinopathy (Acute 04/04/13) 06/14/18 mild non-proliferative DR L eye 09/05/[address] R eye 08/26/20 right moderate non-proliferative; Left Moderate non proliferative. Right: Diabetic macular edema present; Left Diabetic macular ededma present Mixed conductive and sensorineural hearing loss (Acute 03/16/13) fit with B/L [employer] Q50-SP BTE hearing aids. size 13 batteries Obesity (BMI 30.0-34.9) (Acute 09/19/00) 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 (Chronic) [facility] Hem Onc. 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 (Acute) Tinnitus (Acute 04/07/13) Sensorineural hearing loss (Acute 06/01/14) Otosclerosis (Acute 06/24/05) Mixed conductive and sensorineural hearing loss of both ears (Acute 06/01/14) Irritable bowel syndrome (Acute 03/21/86) Impacted cerumen (Acute 03/16/13) Chronic pain (Acute 10/21/07) Posterior vitreous detachment of right eye (Acute) 09/05/18 [facility] complicated by vitreous hemorrhage, no rhegmatogenous retinal pathology Injury of tongue (Acute) Type II diabetes mellitus (Chronic 2002) goal A1C 8.0 (Comi) , 5 pm glucose <150 06/24/18 Orthostatic hypotension dysautonomic syndrome (Chronic 08/19/16) Obstructive sleep apnea syndrome (Chronic 06/14/09) C-PAP ([facility]) not tolerated, re-eval 09/16/20 w/ nocturnal hypoxia 05/26/21 F/U Sleep Clinic - pt will have repeat in lab sleep study to requalify for CPAP 06/30/21 F/Y at Sleep Clinic Medical History Acrochordon Adiposity Arthritis Balance problem Cervical disc disorder with radiculopathy, cervicothoracic region 05/21/21 [facility] Neurosurgery Cervicalgia Diarrhea DLBCL (diffuse large B cell lymphoma) GERD (gastroesophageal reflux disease) Impacted cerumen of both ears Keratosis pilaris Lymphoma Migraine Nevus Notalgia paresthetica Other diseases of respiratory system, not elsewhere classified Paralyzed hemidiaphragm Paresthesias in left hand ulnar pattern Peripheral neuropathy Primary cutaneous diffuse large cell B-cell lymphoma Seborrheic keratosis Spondylitis, cervical Thoracic spine fracture T7, T8 Spinous processes. Tinea versicolor Surgical History Arthroplasty (05/07/17) Rt total shoulder arthroplasty 05/07/17 [facility] [place] [facility] [place] s/p right shoulder revision. Arthroscopy, Shoulder (12/06/12) Dr Bass, [facility], L shoulder Bronchoscopy (09/04/08) bernardo Cholecystectomy (03/21/96) Colonoscopy - IV Sedation (07/05/06) Colonoscopy - MAC (01/13/17) CTS & CUBOID TUNNEL RELEASE (07/05/12) LEFT, [facility] cts right (08/20/13) R [facility] endoscopic Excision, Scalp Mass (06/11/16) History of bone marrow biopsy Hx of hernia repair Nasal septoplasty (01/13/07) Prostatectomy (03/21/08) radical r ankle 3rd def sp (08/21/99) radio-ablation (11/20/05) t shoulder surgery (03/05/08) manipulation Dr Baltazar rgt total shoulder arthroplasty (05/19/17) [facility] Right shoulder revision RTC repair 08/04/17 (subscapularis). Right shoulder (03/19/14) subacromial decompression, tenotomy, distal clavicle; [facility] S/P decompression of ulnar nerve at elbow revise ulnar nerve at elbow. stapedectomy (09/21/06) Right Upper GI endoscopy (10/25/14) Juarez's esophagus Vasectomy (09/21/06) Family History Mother , CVA's at age 88. Hypertensive disorder, systemic arterial Family history of stroke Personal history of malignant neoplasm skin ca Heart disease stent Dementia Father , cardiac at age 94. Personal history of malignant neoplasm skin ca prostate ca Depression Anxiety Brother Depression Heart disease cardiomyopathy Anxiety Daughter Age: 52 Hypertensive disorder, systemic arterial Diabetes Sister Anxiety Depression Heart disease Social History Smoking/Tobacco Use Status: Never Second Hand Exposure: No Smoking risk assessment performed?: Yes Alcohol Intake: current Alcohol Intake frequency: holidays/special occasions o nly Drug use: Never Substance use type: does not use Adopted: No Caregiver/Support person: No Household members: spouse Housing: house Number of Children: 2 Communication Needs: Hard of Hearing and Corrective Lenses Education Level: college Do you need help understanding health information?: Rarely current occupation: disability due to paralized diaphragm, Prostate CA, shoulder weakness,DM Pets and animals: Yes Pets and animals: cat(s), snake(s) and other Sexually active: Yes Do you think of yourself as: straight/heterosexual Current gender identity: male What is your relationship status?: How often do you talk on the phone with friends or family?: twice per week How often do you get together with friends or relatives?: once per week How often do you attend jain or uatsdin services?: 1-3 times per year Do you belong to any clubs or organized social groups?: yes Panel score (0-1 are the most socially isolated patients): 3 What type of physical activity do you participate in: walking, bicycling and other Details: rowing machine Duration: 15-30 minutes/day Frequency: 3-4 times per week Gladys/Muslim: Faith Special gladys needs: No Seatbelt use: always Helmet use: Yes Helmet use: sometimes Drive intox or ride w/intox 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 Head: Normocephalic, atraumatic. Eye: Pupils equal, round reactive to light. Extraocular eye movements intact. Right eye with conjunctival injection. No scleral icterus. Ear, nose, mouth, throat: Grossly normal inspection. Normal voice, handling secretions normally. Neck: Trachea midline. Cardiovascular: Well-perfused distal extremities. Regular rate and rhythm. Respiratory: Nonlabored respiration. Coarse left-sided breath sounds. Gastrointestinal: Nondistended abdomen. Musculoskeletal: No lower extremity pitting edema. Moving all 4 extremities spontaneously. Skin: Normal for age and race, grossly normal temperature and turgor. No acute rash. Neurologic: Alert and appropriate, no apparent acute deficits. Psychiatric: Mood and manner are appropriate. Grooming and personal hygiene are appropriate. Course Vital Signs Vital signs: Vital Signs Temperature 37 C 08/02/22 13:29 Pulse 98 H 08/02/22 13:29 Respiratory Rate 20 08/02/22 13:29 Blood Pressure 128/97 H 08/02/22 13:29 Pulse Oximetry 88 L 08/02/22 13:29 Temperature 37 C 08/02/22 13:29 Temperature Source Skin 08/02/22 13:29 Pulse 98 H 08/02/22 13:29 Respiratory Rate 20 08/02/22 13:29 Blood Pressure 128/97 H 08/02/22 13:29 Pulse Oximetry 93 08/02/22 13:44 Oxygen Delivery Method Nasal Cannula 08/02/22 13:44 Oxygen Flow Rate 2 08/02/22 13:44 Pain Level 0 08/02/22 13:29 POCUS Exam (ED) Limited Thoracic Lung Exam DATE OF EXAM: 08/02/22 TIME OF EXAM: 14:18 REASON FOR EXAM: Pneumonia VISUALIZED STRUCTURES: right anterior, left anterior, right lateral, left lateral, right posterior and left posterior PERTINENT FINDINGS/IMPRESSION: Pneumonia and Other impression: Left lung with focal B-lines and subpleural consolidation concerning for pneumonia. Exam complete
[2022-08-02 14:41] LABS: COVID-19 PCR Negative (Negative); Influenza A PCR Negative (Negative); Influenza B PCR Negative (Negative); RSV PCR Negative (Negative)
[2022-08-02 14:41] LABS: BE (Venous) 5 mmol/L (-2-3); HCO3 (Venous) 29 mmol/L (23-28); O2 Sat (Venous) 87 %; TCO2 (Venous) 26 mmol/L (24-29); pCO2 (Venous) 44 mmHg (41-51); pH (Venous) 7.43 (7.31-7.41); pO2 (Venous) 49 mmHg
[2022-08-02 14:44] LABS: Source Nasopharynx
[2022-08-02 14:45] LABS: Abs Immature Grans 0.03 10^3/uL (0.0-0.06); Absolute Basophil Count 0.04 10^3/uL (0.0-0.2); Absolute Eosinophil Count 0.09 10^3/uL (0.0-0.7); Absolute Lymphocyte Count 1.43 10^3/uL (1.2-3.4); Absolute Monocyte Count 1.25 10^3/uL (0.1-0.8); Basophils % 0.4; HCT 39.5 % (40.0-50.0); HGB 12.8 g/dL (13.5-17.5); Immature Grans % 0.3; Lymphocytes % 15.6; MCH 27.8 pg (27.0-33.0); MCHC 32.4 % (32.0-36.0); MCV 86 fL (80-95); MPV 9.9 fL (8.0-11.0); Monocytes % 13.7; Platelet Count 176 10^3/uL (130-400); RBC 4.61 10^6/uL (4.36-5.78); RDW 15.9 % (11.8-14.1); WBC 9.14 10^3/uL (4.4-10.8)
[2022-08-02] MEDS: cefTRIAXone 2 GM/50 ML BAG IVPB (14:45)
[2022-08-02] MEDS: Normal Saline 500 ML IV (14:45)
[2022-08-02 15:05] LABS: ALT 36 U/L (16-63); AST 25 U/L (15-37); Albumin 2.9 g/dL (3.4-5.0); Alkaline Phosphatase 100 U/L (46-116); Anion Gap 7.5 mmol/L (3-11); BUN 19 mg/dL (7-18); Bilirubin, Total 0.4 mg/dL (0.2-1.0); CO2 27.5 mmol/L (21.0-32.0); CREATININE 1.1 mg/dL (0.70-1.30); Calcium 9.1 mg/dL (8.5-10.1); Chloride 102 mmol/L (98-107); Estimated GFR 73.58 (mL/min/1.73m2); Glucose 198 mg/dL (74-106); Potassium 4.5 mmol/L (3.5-5.1); Sodium 137 mmol/L (136-145); Total Protein 7.2 g/dL (6.4-8.2); Troponin I < 50 ng/L (<or=60)
--- NOTE | 2022-08-02 15:12 | DI.VRAD_ITS ---
PROCEDURE INFORMATION: Exam: XR Chest Exam date and time: 08/02/2022 2:58 PM Age: 67 years old Clinical indication: Other: SOB TECHNIQUE: Imaging protocol: Radiologic exam of the chest. Views: 1 view. COMPARISON: CT CHEST WO 08/22/2021 10:07 AM FINDINGS: Limited due to rotation Lungs: Question mild interstitial thickening No consolidation. Pleural spaces: No pleural effusion. No pneumothorax. Heart/Mediastinum: No cardiomegaly. Bones/joints: Right shoulder arthroplasty. IMPRESSION: Mild interstitial edema versus pneumonitis Dictated and Authenticated by: Tano Linn MD. Ordering:STEW Boone MD
[2022-08-02 15:18] LABS: D-Dimer 649 ng/mlFEU (<500)
[2022-08-02] MEDS: VANCOMYCIN/WATER (PEG) 2 GM/400 ML BAG IV (15:22)
[2022-08-02 15:39] LABS: Lactate 1.3 mmol/L (0.6-1.4)
[2022-08-02] MEDS: Doxycycline Hyclate 100 MG CAP PO (16:49)
--- NOTE | 2022-08-02 16:50 | NUR.NOTE ---
Nursing Note: Referral faxed to PCP for community acquired pneumonia, in 1 week.
== END 2022-08-02 17:05 | disposition home or self-care (01) ==
PROVIDERS: Emergency Provider Emergency Medicine; PCP Family Medicine
DX: J18.9 Pneumonia, unspecified organism; H10.31 Unspecified acute conjunctivitis, right eye; D64.9 Anemia, unspecified; R00.0 Tachycardia, unspecified; R07.9 Chest pain, unspecified; Z99.81 Dependence on supplemental oxygen; J98.6 Disorders of diaphragm; J96.11 Chronic respiratory failure with hypoxia; E11.9 Type 2 diabetes mellitus without complications
CPT/HCPCS: 36416; 76604; 80053; 82805; 82962; 87040; 87637; 93005; 96365; 96367; 99285; 71045; 83605; 83735; 84484; 85025; 85379; 93010; 99284

== ENCOUNTER → 2022-11-04 09:51 | Outpatient (BNVA) | payer MEDICARE, SELFPAY | PROVIDERS: PCP Family Medicine; Visit Provider Psychiatry & Neurology Neurology | DX: G70.9 Myoneural disorder, unspecified (principal); J99 Respiratory disorders in diseases classified elsewhere; R06.02 Shortness of breath; E11.43 Type 2 diabetes mellitus with diabetic autonomic (poly)neuropathy; E11.49 Type 2 diabetes mellitus with other diabetic neurological complication; E11.65 Type 2 diabetes mellitus with hyperglycemia; M48.02 Spinal stenosis, cervical region; G25.0 Essential tremor | CPT/HCPCS: 99214 ==

== ENCOUNTER → 2022-12-10 14:17 | Outpatient (BNVA) | payer MEDICARE, SELFPAY | PROVIDERS: PCP Family Medicine; Referring Provider Family Medicine; Visit Provider Physical Therapy Assistant | DX: K22.70 Barrett's esophagus without dysplasia (principal); Z12.11 Encounter for screening for malignant neoplasm of colon | CPT/HCPCS: 99203; 99214 ==

== ENCOUNTER 2023-01-18 12:35 | Day surgery (SDC) | payer MEDICARE, SELFPAY ==
[2023-01-18] VITALS (9 sets, daily range): BP systolic 99–142; BP diastolic 63–108; PULSE 76–94; RESP 15–18; TEMP 36.4–36.7; O2SAT 95–100; BMI 32.7
--- NOTE | 2023-01-18 13:13 | W.SURGCON ---
Date of service: 01/18/23 Time of Service: 13:14 Assessment and Plan Assessment and plan (1) Adenomatous polyp of colon: Status: Acute Assessment and plan: Surveillance colonoscopy (2) Barretts esophagus: Status: Acute Assessment and plan: Surveillance EGD History of Present Illness Narrative: Patient here for Juarez's esophagus surveillance as well as colonoscopy surveillance. He had Juarez's esophagus found at [facility] a few years ago. He does not have any symptoms since his reflux is controlled with Nexium. He does not have a family history of colon cancer but did have precancerous polyps removed on his last colonoscopy. He has never had intra-abdominal surgery of significance other than a gallbladder removal. 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) 06/06/21 R EYE Cataract, nuclear sclerotic, both eyes (Acute ~05/2021) Osteoarthritis of right hip (Acute) Change in voice (Acute) Essential tremor (Acute) Brain fog (Acute) Diaphragm dysfunction (Acute) Conductive hearing loss, external ear (Acute) Impacted cerumen, bilateral (Acute) Cervical stenosis of spinal canal (Acute) Shortness of breath (Acute) Neuromuscular respiratory weakness (Acute) Post-acute sequelae of COVID-19 (PASC) (Acute) Other hypersomnia (Acute) Cramp in lower extremity associated with sleep (Acute) Periodic limb movement disorder (Acute) Restrictive lung disease (Chronic) PFTs 09/08 shows moderately severe restriction Prostate CA (Chronic) Injury of tongue (Acute) Posterior vitreous detachment of right eye (Acute) 09/05/18 [facility] complicated by vitreous hemorrhage, no rhegmatogenous retinal pathology Chronic pain (Acute 10/21/07) Impacted cerumen (Acute 03/16/13) Irritable bowel syndrome (Acute 03/21/86) Mixed conductive and sensorineural hearing loss of both ears (Acute 06/01/14) Otosclerosis (Acute 06/24/05) Sensorineural hearing loss (Acute 06/01/14) Tinnitus (Acute 04/07/13) 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 Type II diabetes mellitus (Chronic 2002) goal A1C 8.0 (Comi) , 5 pm glucose <150 06/24/18 Orthostatic hypotension dysautonomic syndrome (Chronic 08/19/16) Obstructive sleep apnea syndrome (Chronic 06/14/09) C-PAP ([facility] [place]) not tolerated, re-eval 09/16/20 w/ nocturnal hypoxia 05/26/21 F/U Sleep Clinic - pt will have repeat in lab sleep study to requalify for CPAP 06/30/21 F/Y at Sleep Clinic Obesity (BMI 30.0-34.9) (Acute 09/19/00) Mixed conductive and sensorineural hearing loss (Acute 03/16/13) fit with B/L Soflow Q50-SP BTE hearing aids. size 13 batteries Mild nonproliferative diabetic retinopathy (Acute 04/04/13) 06/14/18 mild non-proliferative DR L eye 09/05/[address] R eye 08/26/20 right moderate non-proliferative; Left Moderate non proliferative. Right: Diabetic macular edema present; Left Diabetic macular ededma present Loc osteoarth NOS-unspec (Acute 02/20/05) Impotence, organic (Acute 12/19/08) S/P PROSTATE SURG Hyperlipidemia (Acute 06/24/05) GOAL LDL <100 (DM) Atorvastatin renewed. Dizziness (Acute 01/30/13) MULTIFACTORAL: EAR/PERIPHERAL NEUROPATHY, AUTONOMIC, ?ORTHOSTATIC DUE TO HYPERGLYCEMIA Depressive disorder (Chronic 07/23/09) Bupropion renewed. Cutaneous follicle center lymphoma (Acute 07/24/16) Favor primary cutaneous, occiput, refer [facility] [place] (Dr Gallegos) Compulsive shopping (Acute 08/31/14) Naltrexone renewed. Chronic pain in right shoulder (Acute 11/03/16) Cervical spondylosis without myelopathy (Acute 11/03/16) pain; 01/06/19 - MRI shows progression of degenerative changes and canal stenosis at C4-5. Severe facet arthropathy at the C3-4 level. Brachial neuritis (Acute 01/04/09) WITH PARALYZED R HEMIDIAPHRAGM Barretts esophagus (Acute 10/25/14) last EGD 05/2012 [facility] [place] Is omeprazole renewed. Autonomic neuropathy due to diabetes (Chronic) confirmed Dr Crenshaw 11/2013; drop attack June 2015 attributed to autonomic dysfunction (Dr Chen) Type II diabetes mellitus with neurological manifestations, uncontrolled (Acute 04/03/14) goal A1c 9-9% per Dr Palacios Cervical spondylosis without myelopathy (Chronic) Medical History Notalgia paresthetica Keratosis pilaris Spondylitis, cervical Lymphoma Arthritis Primary cutaneous diffuse large cell B-cell lymphoma 2018 remisson Peripheral neuropathy Adiposity Migraine DLBCL (diffuse large B cell lymphoma) Seborrheic keratosis Cervical disc disorder with radiculopathy, cervicothoracic region 05/21/21 [facility] [place] Neurosurgery Thoracic spine fracture T7, T8 Spinous processes. Nevus Tinea versicolor Acrochordon Balance problem Diarrhea Paresthesias in left hand ulnar pattern Cervicalgia Other diseases of respiratory system, not elsewhere classified Paralyzed hemidiaphragm RIGHT GERD (gastroesophageal reflux disease) Impacted cerumen of both ears Surgical History S/P decompression of ulnar nerve at elbow revise ulnar nerve at elbow. History of bone marrow biopsy Hx of hernia repair stapedectomy (09/21/06) Right rgt total shoulder arthroplasty (05/19/17) [facility] [place] Right shoulder revision RTC repair 08/04/17 (subscapularis). rgt shoulder surgery (03/05/08) manipulation Dr Baltazar radio-ablation (11/20/05) r ankle 3rd def sp (08/21/99) cts right (08/20/13) R [facility] [place] endoscopic bernardo Vasectomy (09/21/06) Upper GI endoscopy (10/25/14) Juarez's esophagus Right shoulder (03/19/14) subacromial decompression, tenotomy, distal clavicle; [facility] [place] Prostatectomy (03/21/08) radical Nasal septoplasty (01/13/07) Excision, Scalp Mass (06/11/16) Colonoscopy - MAC (01/13/17) Colonoscopy - IV Sedation (07/05/06) Cholecystectomy (03/21/96) CTS & CUBOID TUNNEL RELEASE (07/05/12) LEFT, [facility] [place] Bronchoscopy (09/04/08) Arthroscopy, Shoulder (12/06/12) Dr Bass, [facility] [place], L shoulder Arthroplasty (05/07/17) Rt total shoulder arthroplasty 05/07/17 [facility] [place] 08/19/17 [facility] [place] report~2WEEK ov s/p right shoulder revision. Family History Mother , CVA's at age 88. Hypertensive disorder, systemic arterial Family history of stroke Personal history of malignant neoplasm skin ca Heart disease stent Dementia Father , cardiac at age 94. Personal history of malignant neoplasm skin ca prostate ca Depression Anxiety Brother Depression Heart disease cardiomyopathy Anxiety Daughter Age: 53 Hypertensive disorder, systemic arterial Diabetes Sister Anxiety Depression Heart disease Social History Smoking/Tobacco Use Status: Never Second Hand Exposure: No Smoking risk assessment performed?: Yes Alcohol Intake: current Alcohol Intake frequency: holidays/special occasions only Drug use: Never Substance use type: does not use Adopted: No Caregiver/Support person: No Household members: spouse Housing: house Number of Children: 2 Communication Needs: Hard of Hearing and Corrective Lenses Education Level: college Do you need help understanding health information?: Rarely current occupation: disability due to paralized diaphragm, Prostate CA, shoulder weakness,DM Pets and animals: Yes Pets and animals: cat(s), snake(s) and other Sexually active: Yes Do you think of yourself as: straight/heterosexual Current gender identity: male What is your relationship status?: How often do you talk on the phone with friends or family?: twice per week How often do you get together with friends or relatives?: once per week How often do you attend denominational or zoroastrianism services?: 1-3 times per year Do you belong to any clubs or organized social groups?: yes Panel score (0-1 are the most socially isolated patients): 3 What type of physical activity do you participate in: walking, bicycling and other Details: rowing machine Duration: 15-30 minutes/day Frequency: 3-4 times per week Gladys/Congregational: Adventism Special gladys needs: No Seatbelt use: always Helmet use: Yes Helmet use: sometimes Drive intox or ride w/intox driver trainee: No Working smoke detector in home: Yes Carbon monox detector in home: Yes Do you feel safe at home: Yes Do you feel safe in your relationship?: Yes Exam Narrative Exam Narrative: General: Nontoxic and comfortable Neuro: Alert and oriented x3 Psych: Good mood and affect, good insight and understanding into his condition Chest: Nonlabored breathing and no wheezing Heart: Regular Results Last Vital Signs Temp 98.1 F 01/18/23 12:53 Pulse 94 H 01/18/23 12:53 Resp 18 01/18/23 12:53 BP 121/67 01/18/23 12:53 Pulse Ox 97 01/18/23 12:53
--- NOTE | 2023-01-18 13:16 | COLE_ITS ---
Date of service: 01/18/23 Time of Service: 13:17 Colonoscopy Report Procedure Description: Procedures performed: 1. Colonoscopy with snare polypectomy x1 2. Cold forceps polypectomy x1 Preoperative diagnosis: Surveillance colonoscopy, colon polyps Postoperative diagnosis: Colon polyps Surgeon: Poncho Lou Anesthesia: Shira Indication for procedure: Patient is a 67-year-old man with a history of colon polyps removed on his last colonoscopy 5 years ago. He has no symptoms. He has no family history of colon cancer. Findings: Normal terminal ileum. In the sigmoid colon a large pedunculated 10- 12 mm polyp was removed with hot snare technique. In the rectum a small 2-3 mm sessile polyp was removed cold forceps technique. No obvious diverticular disease anywhere. No hemorrhoidal disease. Surveillance/follow-up recommendations: 3 years Complications: None Blood loss: Minimal Specimens:?? YES Quality of Prep:?? Good Procedure in detail: Written consent was obtained from the patient who was in agreement with the risks, benefits and indications of the procedure.? He was turned from upper endoscopy (see separate procedure note) and kept in the same position and anesthesia was continued and I started the colonoscopy portion of the procedure. Digital rectal exam and visual examination was performed and within normal limits.? A well?lubricated colonoscope was advanced without difficulty all the way to the cecum identified by the ileocecal valve, and triangular folds and appendiceal orifice.? The terminal ileum was intubated and look normal. The scope was then slowly withdrawn.?? Retroflexion was performed in the rectum.? The findings/interventions are noted above. The scope was then removed and the patient tolerated the procedure well and was then taken back to the PACU in hemodynamically stable condition.
--- NOTE | 2023-01-18 13:17 | W.PM.ENDDOP ---
Date of service: 01/18/23 Time of Service: 13:17 Endoscopy Report PROCEDURE DESCRIPTION: Procedures performed: 1.? Esophagogastroduodenoscopy with cold forceps biopsies Preoperative diagnosis: Juarez's esophagus Postoperative diagnosis: Chronic gastritis, small (~1cm) type 1 Sliding Hiatal Hernia Hill grade 1 Surgeon: Poncho Lou Anesthesia: [facility] Indication for procedure: 67-year-old man has a history of Juarez's esophagus. His GERD symptoms are well?controlled with Nexium Findings: - D3, D2 and D1 - normal - no inflammation or ulcers - Pylorus - patent.? No bile reflux visualized during procedure. - Antrum - looks mildly inflamed and with chronic appeance - biopsies taken to rule out occult H. pylori - Stomach Body - normal?appearance - Fundus -? Normal.? No polyps. - Hiatus - Retroflexion showed a small type I sliding hiatal hernia (~1 cm slide) - Esophagus - distal esophagus does not look inflamed or irritated.? No stricture or evidence of Juarez's.? The mid and proximal esophagus was also normal. I took cold forceps biopsies at the very distal esophagus near the GE junction to confirm because of the history. - Cords/hypopharynx - Normal OVERALL - chronic gastritis, no ulcers, no obvious strips of Juarez's anywhere in the esophagus Surveillance/follow-up recommendations: Pending biopsy results - I do not think there is a role for continued endoscopy surveillance since I do not think he has Juarez's any longer Complications: None Blood loss: Minimal Specimens:? YES Procedure in detail: Written consent was obtained from the patient who was in agreement with the risks, benefits and indications of the procedure.? We went to the endoscopy suite and laid the patient in left lateral decubitus position.? Anesthesia was administered which was tolerated well.? A timeout was performed and when we are all in agreement we began the procedure. A well?lubricated endoscope was advanced without difficulty down the esophagus, into the stomach, through a patent pylorus and into the duodenum.? It was then slowly pulled back with findings noted above. The scope was then removed and the patient tolerated the procedure well and was then turned for the colonoscopy portion of the procedure (see separate procedure note)
--- NOTE | 2023-01-18 13:18 | PDOC.DSDIS_ITS ---
Date of service: 01/18/23 Time of Service: 13:18 Discharge Plan Disposition Patient Disposition: Home Condition: Good Discharge Details Attending Provider: Rudi Lou Primary Care Provider: Alli Calvillo Home Meds and New Rx's Prescriptions: Continued Simbrinza 1-0.2 % drops,suspension 1 drp ophthalmic (eye) TID Rx Instructions: left eye latanoprost 0.005 % drops 1 drp ophthalmic (eye) DAILY Patient Comments: pt has completed these, no longer taking Rx Instructions: both eyes daily albuterol sulfate [ProAir HFA] 90 mcg/actuation HFA aerosol inhaler See Rx Instructions inhalation Q6H PRN (Reason: bronchospasm) Qty: 8.5 6RF Rx Instructions: inhaled every 6 hours PRN; (DME) pen needle, diabetic [BD Ultra-Fine Mini Pen Needle] 31 gauge x 3/16 needle 0 .Route Qty: 200 11RF Rx Instructions: As directed 7xday, to keep HbA1c less than 7; on insulin; E11.49 glucagon HCl [Glucagon (HCl) Emergency Kit] 1 mg recon soln 1 mg subcut Q20M PRN (Reason: hypoglycemia) Qty: 1 3RF Rx Instructions: until target blood sugar attained ibuprofen 200 mg tablet 400 mg PO TID PRN PRN polyethylene glycol 3350 17 gram/dose powder 17 g PO ONCE Qty: 238 0RF Rx Instructions: Take per colonoscopy instructions provided by ordering providers office bisacodyl [Dulcolax (bisacodyl)] 5 mg tablet,delayed release (DR/EC) 5 mg PO ONCE Qty: 4 0RF Rx Instructions: Take per colonoscopy instructions provided by ordering providers office cholecalciferol (vitamin D3) [Vitamin D3] 2,000 UNIT capsule 2,000 unit PO DAILY potassium gluconate 99 MG tablet 99 mg PO DAILY Rx Instructions: for leg cramps cyanocobalamin (vitamin B-12) [Vitamin B-12] 1,000 MCG tablet 1,000 mcg PO DAILY Qty: 100 (DME) Insulin Syringe MicroFine 1 mL 27 gauge x 5/8 syringe 1 ea Miscellaneous BID Qty: 300 6RF Rx Instructions: For DM E11.9 to maintain A1C<7. BD ultrafine .3ml 31G 8mm (DME) Oxygen Tank See Rx Instructions .Route Qty: 1 0RF Rx Instructions: Use 2Lpm at night as directed (DME) FreeStyle Izabella 2 [place] Misc See Rx Instructions .Route Qty: 1 0RF Rx Instructions: As directed for DM control to keep a1c at or under 7.0 Stiolto Respimat 2.5-2.5 mcg/actuation mist 2 puff inhalation DAILY Qty: 4 12RF (DME) FreeStyle Izabella 2 Sensor Kit See Rx Instructions .Route Qty: 6 3RF Rx Instructions: As directed for DM control and to keep A1c at or below 7 Farxiga 10 mg tablet 10 mg PO DAILY Qty: 90 3RF melatonin 5 mg capsule 10 mg PO HS pregabalin 200 mg capsule 200 mg PO BID Qty: 180 3RF Victoza 3-Shyam 0.6 mg/0.1 mL (18 mg/3 mL) pen injector 1.8 mg subcut DAILY 30 Days Qty: 27 6RF Rx Instructions: Dx: E11.65 insulin glargine [Lantus Solostar U-100 Insulin] 100 unit/mL (3 mL) insulin pen 50 unit subcut QAM Qty: 15 3RF venlafaxine 225 mg tablet extended release 24hr See Rx Instructions .ROUTE .COMPLEX Qty: 90 3RF Dose Instruction: TAKE 1 TABLET BY MOUTH DAILY Rx Instructions: TAKE 1 TABLET BY MOUTH DAILY Humulin R U-500 (Conc) Kwikpen 500 unit/mL (3 mL) insulin pen See Rx Instructions subcut TID MDD 160 units Qty: 9 6RF Rx Instructions: subcutaneously three times a day; 85U am, 20 units at noon, 80 units QHS; Can increase noon dose to 15 units if no hypoglycemia after one month, To keep HbA1c less than 6.5%, Dx: Ell.65 modafinil 200 mg tablet 400 mg PO DAILY Qty: 180 3RF naltrexone 50 mg tablet 50 mg PO DAILY Qty: 90 3RF atorvastatin 40 mg tablet 40 mg PO DAILY Qty: 90 3RF esomeprazole magnesium 40 mg capsule,delayed release(DR/EC) 40 mg PO DAILY Qty: 90 3RF trazodone 50 mg tablet 125 mg PO QHS magnesium sulfate 100 mg capsule 250 mg PO DAILY Discharge Instructions Stand Alone Forms: Colonoscopy Post Instructions Activity:: Activity as Tolerated Diet:: As Tolerated Discharge Orders Discharge Orders: Discharge Order (Routine); Ordered 01/18/23 Ordered By: Rudi Lou DS: Diagnosis Discharge Diagnosis (1) Adenomatous polyp of colon: Status: Acute Asessment and Plan: FINDINGS: The polyps were removed from your colon. One of them was quite large. Because of this finding he should repeat another colonoscopy in 3 years. (2) Barretts esophagus: Status: Acute Asessment and Plan: FINDINGS: Not seen in Juarez's esophagus. Nonetheless I took biopsies to confirm/prove that there is none. Your stomach lining looks slightly, chronically inflamed chronic gastritis and there is probably nothing to do about it other than possible dietary changes. You can follow-up with your PCP to discuss. I do not think you need to have further surveillance for Juarez's esophagus in my opinion, as long as you stay on the antacid medication (Nexium).
[2023-01-18] MEDS: Lactated Ringers 1,000 ML 80 ML IV (13:19)
--- NOTE | 2023-01-18 13:33 | ANES.PREOP_ITS ---
General Info Date of Service Date Performed: 01/18/23 Height: 6 ft Weight: 109.5 kg Body Mass Index (BMI): 32.7 Surgical Procedure: Operation Date: 01/18/23 13:05 Proposed Procedure Side Surgeon p Colonoscopy/Gastroscopy Rudi Lou MD Meds Allergies and Home Medications Allergies Allergy/AdvReac Type Severity Reaction Status Date / Time metaxalone [From Skelaxin] Allergy Mild Verified 01/18/23 12:52 iodine Allergy Unknown Skin Rash Verified 01/18/23 12:52 latex Allergy Unknown Skin Rash Verified 01/18/23 12:52 banana AdvReac Unknown Nausea Verified 01/18/23 12:52 gabapentin AdvReac Unknown Nausea Verified 01/18/23 12:52 metformin AdvReac Unknown Nausea Verified 01/18/23 12:52 Home Medication Medication Instructions Recorded cholecalciferol (vitamin D3) 50 2,000 unit PO DAILY 06/15/12 mcg (2,000 unit) capsule (Vitamin D3) potassium gluconate 595 mg (99 mg) 99 mg PO DAILY 08/29/13 tablet cyanocobalamin (vitamin B-12) 1,000 mcg PO DAILY #100 tabs 11/03/16 1,000 mcg tablet (Vitamin B-12) Insulin Syringe MicroFine 1 mL 27 #300 SYRGS 11/21/20 gauge x 5/8 (insulin syringe-needle U-100) glucagon HCl 1 mg solution for 1 mg subcut Q20M PRN hypoglycemia 05/06/21 injection (Glucagon (HCl) #1 ea Emergency Kit) Oxygen #1 ea 11/11/21 flash glucose scanning reader #1 ea 01/22/22 (FreeStyle Izabella 2 Free Soil) tiotropium 2.5 mcg-olodaterol 2.5 2 puff inhalation DAILY #4 grams 03/31/22 mcg/actuation mist for inhalation (Stiolto Respimat) ibuprofen 200 mg tablet 400 mg PO TID PRN PRN 04/13/22 flash glucose sensor (FreeStyle #6 ea 06/01/22 Izabella 2 Sensor kit) dapagliflozin propanediol 10 mg 10 mg PO DAILY #90 tabs 08/03/22 tablet (Farxiga) albuterol sulfate 90 mcg/actuation See Rx Instructions inhalation Q6H 08/10/22 aerosol inhaler (ProAir HFA) PRN bronchospasm #8.5 grams brinzolamide 1 %-brimonidine 0.2 % 1 drp ophthalmic (eye) TID 08/10/22 eye drops,suspension (Simbrinza) latanoprost 0.005 % eye drops 1 drp ophthalmic (eye) DAILY 08/10/22 magnesium sulfate 100 mg capsule 250 mg PO DAILY 08/10/22 melatonin 5 mg capsule 10 mg PO HS 08/10/22 pregabalin 200 mg capsule 200 mg PO BID for neuropathic pain 09/07/22 #180 caps liraglutide 0.6 mg/0.1 mL (18 mg/3 1.8 mg (0.3 mL) subcut DAILY 30 09/17/22 mL) subcutaneous pen injector days #27 mL (Victoza 3-Shyam) insulin glargine 100 unit/mL (3 50 unit (0.5 mL) subcut QAM #15 mL 09/24/22 mL) subcutaneous pen (Lantus Solostar U-100 Insulin) venlafaxine 225 mg tablet,extended See Rx Instructions .Route 10/19/22 release 24 hr .COMPLEX #90 tabs insulin regular hum U-500 conc 500 See Rx Instructions subcut TID #9 10/23/22 unit/mL(3 mL) subcut pen (Humulin mL R U-500 (Conc) Insulin Kwikpen) pen needle, diabetic 31 gauge x #200 ea 11/03/2206/04 (BD Ultra-Fine Mini Pen Needle) modafinil 200 mg tablet 400 mg (2 x 200 mg) PO DAILY #180 11/12/22 tabs atorvastatin 40 mg tablet 40 mg PO DAILY #90 tabs 11/17/22 naltrexone 50 mg tablet 50 mg PO DAILY #90 tabs 11/17/22 bisacodyl 5 mg tablet,delayed 5 mg PO ONCE #4 tabs 12/10/22 release (Dulcolax (bisacodyl)) esomeprazole magnesium 40 mg 40 mg PO DAILY #90 caps 12/10/22 capsule,delayed release polyethylene glycol 3350 17 17 g PO ONCE #238 grams 12/10/22 gram/dose oral powder trazodone 50 mg tablet 125 mg PO QHS Insomnia 01/07/23 Current Visit Medications: Current Medications Generic Name Dose Route Start Last Admin Trade Name Freq PRN Reason Stop Dose Admin Ringer's Solution 1,000 mls @ 80 mls/hr 01/18/23 06:00 01/18/23 13:19 IV 02/14/23 23:59 80 mls/hr INFUSION LILA Administration IV Miscellaneous Supplies 1 each 01/18/23 06:00 Iv Access IV 02/14/23 23:59 DIRECTED LILA Sodium Chloride 0 ml 01/18/23 06:00 Normal Saline Flush 10 Ml Syr IV 02/14/23 23:59 PRN PRN Sodium Chloride 0 ml 01/18/23 06:00 Normal Saline 10 Ml Vial IJ 02/14/23 23:59 DIRECTED PRN Sterile Water 0 ml 01/18/23 06:00 Water,Injection,Sterile 10 Ml Vial IJ 02/14/23 23:59 DIRECTED PRN PFSH Active Problems Active Problems: Problem Status Onset Code Wears hearing aid in both ears Z97.4 Hypersomnia G47.10 Acute dysfunction of both eustachian tubes H69.83 Acute sinusitis J01.90 Adenomatous polyp of colon D12.6 Pain, foot M79.673 Metatarsalgia M77.40 Nail dystrophy L60.3 Macular edema ~05/2021 H35.81 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 Cataract, nuclear sclerotic, both eyes ~05/2021 H25.13 Osteoarthritis of right hip M16.11 Change in voice R49.9 Essential tremor G25.0 Brain fog R41.89 Diaphragm dysfunction J98.6 Conductive hearing loss, external ear H90.2 Impacted cerumen, bilateral H61.23 Cervical stenosis of spinal canal M48.02 Shortness of breath R06.02 Neuromuscular respiratory weakness G70.9, J99 Post-acute sequelae of COVID-19 (PASC) B94.8 Other hypersomnia G47.19 Cramp in lower extremity associated with sleep G47.62 Periodic limb movement disorder G47.61 Restrictive lung disease J98.4 Prostate CA C61 Injury of tongue S09.93XA Posterior vitreous detachment of right eye H43.811 Chronic pain 10/21/07 G89.29 Impacted cerumen 03/16/13 H61.20 Irritable bowel syndrome 03/21/86 K58.9 Mixed conductive and sensorineural hearing loss of both ears 06/01/14 H90.6 Otosclerosis 06/24/05 H80.90 Sensorineural hearing loss 06/01/14 H90.5 Tinnitus 04/07/13 H93.19 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 E11.3511 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 C83.31 Type II diabetes mellitus 2002 E11.9 Orthostatic hypotension dysautonomic syndrome 08/19/16 G90.3 Obstructive sleep apnea syndrome 06/14/09 G47.33 Obesity (BMI 30.0-34.9) 09/19/00 E66.9 Mixed conductive and sensorineural hearing loss 03/16/13 H90.8 Mild nonproliferative diabetic retinopathy 04/04/13 E11.3299 Loc osteoarth NOS-unspec 02/20/05 M19.90 Impotence, organic 12/19/08 N52.9 Hyperlipidemia 06/24/05 E78.5 Dizziness 01/30/13 R42 Depressive disorder 07/23/09 F32.9 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 C82.60 Compulsive shopping 08/31/14 F42.8 Chronic pain in right shoulder 11/03/16 M25.511, G89.29 Cervical spondylosis without myelopathy 11/03/16 M47.812 Brachial neuritis 01/04/09 M54.12 Barretts esophagus 10/25/14 K22.70 Autonomic neuropathy due to diabetes E11.43 Type II diabetes mellitus with neurological manifestations, uncontrolled 04/03/14 E11.49, E11.65 Cervical spondylosis without myelopathy M47.812 Medical History Medical History Notalgia paresthetica Keratosis pilaris Spondylitis, cervical Lymphoma Arthritis Primary cutaneous diffuse large cell B-cell lymphoma 2018 [place] Peripheral neuropathy Adiposity Migraine DLBCL (diffuse large B cell lymphoma) Seborrheic keratosis Cervical disc disorder with radiculopathy, cervicothoracic region 05/21/21 [facility] Neurosurgery Thoracic spine fracture T7, T8 Spinous processes. Nevus Tinea versicolor Acrochordon Balance problem Diarrhea Paresthesias in left hand ulnar pattern Cervicalgia Other diseases of respiratory system, not elsewhere classified Paralyzed hemidiaphragm RIGHT GERD (gastroesophageal reflux disease) Impacted cerumen of both ears Medical History Comments:: pt reports during some procedures he was delayed to awaken, but doesn't remember if it was with any scopes or just longer procedures Surgical History Surgical History S/P decompression of ulnar nerve at elbow revise ulnar nerve at elbow. History of bone marrow biopsy Hx of hernia repair stapedectomy (09/21/06) Right rgt total shoulder arthroplasty (05/19/17) [facility] Right shoulder revision RTC repair 08/04/17 (subscapularis). rgt shoulder surgery (03/05/08) manipulation Dr Baltazar radio-ablation (11/20/05) r ankle 3rd def sp (08/21/99) cts right (08/20/13) R [facility] endoscopic bernardo Vasectomy (09/21/06) Upper GI endoscopy (10/25/14) Juarez's esophagus Right shoulder (03/19/14) subacromial decompression, tenotomy, distal clavicle; [facility] Prostatectomy (03/21/08) radical Nasal septoplasty (01/13/07) Excision, Scalp Mass (06/11/16) Colonoscopy - MAC (01/13/17) Colonoscopy - IV Sedation (07/05/06) Cholecystectomy (03/21/96) CTS & CUBOID TUNNEL RELEASE (07/05/12) LEFT, [facility] Bronchoscopy (09/04/08) Arthroscopy, Shoulder (12/06/12) Dr Bass, [facility], L shoulder Arthroplasty (05/07/17) Rt total shoulder arthroplasty 05/07/17 [facility] [place] [facility] [place] s/p right shoulder revision. Tobacco Smoking/Tobacco Use Status: Never Second hand exposure: No Alcohol Alcohol Intake: current Alcohol intake frequency: holidays/special occasions only Substance Use Substance use: Never Substance use type: does not use Vital Signs and Lab Results Vital Signs Most Recent Vital Signs in EMR: Most Recent Vital Signs Temp Pulse Resp BP Pulse Ox 36.7 C 94 H 18 121/67 97 01/18/23 12:53 01/18/23 12:53 01/18/23 12:53 01/18/23 12:53 01/18/23 12:53 Point of Care Results Point of Care Results: Finger Stick Blood Glucose 77 01/18/23 13:11 Lab Results Blood Type / Crossmatch: No Data to Display Complete Blood Count: No Data to Display Complete Metabolic Panel: No Data to Display Liver Function Panel: No Data to Display Coagulation Panel: No Data to Display Cardiac Panel: No Data to Display Arterial Blood Gas: No Data to Display Venous Blood Gas: No Data to Display Pancreas Panel: No Data to Display Thyroid Panel: No Data to Display Infectious Disease: No Data to Display Blood Cultures: No Data to Display Toxicology Panel: No Data to Display Anesthesia Assessment and Plan Anesthesia History Personal History: No History of Anesthesia Complications and Other Family History: No Family History of Anesthesia Complications Exercise Tolerance Exercise Tolerance: Metabolic Equivalents>4 Pertinent Negatives Pertinent Negatives: No Symptoms of GERD Cardiac & Pulmonary Exam Cardiac Exam: Normal S1/S2 Heart Sounds Pulmonary Exam: Clear Bilateral Breath Sounds (Right Nicolas-diaphragm paralysis) Implantable Cardiac Device Does patient have a Pacemaker or an ICD?: No Airway Exam Known Difficult Airway: No Mallampati Class: 2 Mouth Opening: Normal (> 3cm) Thyromental Distance: Greater than 3 cm Neck Range of Motion: Full ROM Neck Circumference: Normal Teeth Condition: Normal Dentition ASA Classification ASA Score: ASA 3 Emergency Case?: No NPO Status NPO Status: NPO Clears >2 hours, Solids >8 hours Anesthesia Plan Resuscitation Status: Full Code Anesthesia Technique: General Anesthesia Airway Planned: Natural Airway Monitors Used: Standard Monitors
--- NOTE | 2023-01-18 13:47 | BOWEL_PTH ---
PATIENT: Linus Youssef LOC: [facility] U#:[id number] AGE/SX: 67/M ROOM: RE01/18/[address]: Rudi Lou : 1955 BED: DIS: 01/18/2023 SPEC #: [id number] RECD: 01/18/23 17:59 STATUS: WENDY RE #: [id number] ALEX: 01/18/23 13:[address]: Rudi Lou DEPT: Surgical Specimen RECD BY: Namita Patterson ENTERED: 01/18/23 18:00 SP TYPE: Bowel OTHR DR: Alli Calvillo DO Tissues: 1 - STOMACH BIOPSY 2 - ESOPHAGUS BIOPSY 3 - BIOPSY BOWEL 4 - BIOPSY BOWEL Procedures: GROSS AND MICRO LEVEL 4 IMMUNOPEROXIDASE STAIN Comments: [id number]
--- NOTE | 2023-01-18 15:29 | W.ANESPOSTOP ---
Postoperative Evaluation Date, Time and Location Date Performed: 01/18/23 Time Performed: 13:15 Patient Location: Day Surgery Unit Vital Signs Most Recent Imported Vital Signs: Most Recent Vital Signs Temp Pulse Resp BP Pulse Ox 36.4 C L 78 15 138/78 95 01/18/23 15:00 01/18/23 15:00 01/18/23 15:00 01/18/23 15:00 01/18/23 15:00 Pain Score Most Recent Pain Score: Most Recent Pain Score Pain Level 0 01/18/23 15:00 Assessment Mental Status: Awake (Alert & Oriented to Patient Baseline) Airway and Respiratory Function: Patent airway with normal (patient baseline) respiratory exam Cardiovascular Function: Hemodynamically Stable Hydration Status: Adequately Hydrated Nausea & Vomiting: No Nausea or Vomiting Pain: Pt. Denies Any Pain Peripheral Nerve Block: Patient did not receive a nerve block
== END 2023-01-18 12:36 | disposition home or self-care (01) ==
PROVIDERS: PCP Family Medicine; Visit Provider Student in an Organized Health Care Education/Training Program
PROC: (CPT 45385; principal; 2023-01-18 13:00)
DX: Z12.11 Encounter for screening for malignant neoplasm of colon (principal); Z86.010 Personal history of colon polyps; K22.70 Barrett's esophagus without dysplasia; K58.9 Irritable bowel syndrome, unspecified; G47.33 Obstructive sleep apnea (adult) (pediatric); D12.5 Benign neoplasm of sigmoid colon; K22.89 Other specified disease of esophagus
CPT/HCPCS: 45385; 43239; 00123; 88305; 88361; J2001

== ENCOUNTER → 2023-04-14 14:39 | Outpatient (BNVA) | payer MEDICARE, SELFPAY | PROVIDERS: PCP Family Medicine; Referring Provider Family Medicine; Visit Provider Physician Assistant Surgical | DX: J98.4 Other disorders of lung (principal); J98.6 Disorders of diaphragm; G70.9 Myoneural disorder, unspecified; J99 Respiratory disorders in diseases classified elsewhere; B94.8 Sequelae of other specified infectious and parasitic diseases; G47.33 Obstructive sleep apnea (adult) (pediatric) | CPT/HCPCS: 99214 ==

== ENCOUNTER → 2023-05-11 09:29 | Outpatient (BNVA) | payer MEDICARE, SELFPAY | PROVIDERS: PCP Family Medicine; Referring Provider Family Medicine; Visit Provider Podiatrist | DX: G47.62 Sleep related leg cramps (principal); E11.43 Type 2 diabetes mellitus with diabetic autonomic (poly)neuropathy; E11.65 Type 2 diabetes mellitus with hyperglycemia; L60.3 Nail dystrophy; G62.82 Radiation-induced polyneuropathy; I89.0 Lymphedema, not elsewhere classified; M77.41 Metatarsalgia, right foot; M77.42 Metatarsalgia, left foot; M67.01 Short Achilles tendon (acquired), right ankle; M67.02 Short Achilles tendon (acquired), left ankle; R60.0 Localized edema | CPT/HCPCS: 11721 ==

== ENCOUNTER 2023-06-11 11:50 | Outpatient (CLI) | payer MEDICARE, SELFPAY ==
[2023-06-11] MEDS: Levalbuterol HFA 15 GM INH 4 PUFF IH (17:18)
[2023-06-11] MEDS: Inhaler, Assist Device 1 EACH MC (17:19)
--- NOTE | 2023-06-14 08:25 | W.PFT ---
Date of service: 06/11/23 Time of Service: 15:19 Pulmonary Function Test Result Indications: Restrictive lung disease Interpretation Spirometry: There is no airflow limitation. There is restrictive spirometry. No bronchodilator response. Lung Volumes: Moderate restrictive lung disease Diffusion Capacity: Decreased diffusion Airway Pressure: Normal airways resistance Impression Moderate restrictive lung disease with a decreased diffusion. Clinical Correlation therefore is recommended.
== END 2023-06-11 11:51 | disposition home or self-care (01) ==
LOC: RT 11:53
PROVIDERS: PCP Family Medicine; Visit Provider Physician Assistant Surgical
DX: J98.4 Other disorders of lung (principal)
CPT/HCPCS: 94060; 94726; 94729

== ENCOUNTER 2023-09-17 10:09 | Outpatient (CLI) | payer MEDICARE, SELFPAY ==
[2023-09-17 10:47] LABS: ALT 36 U/L (16-63); AST 18 U/L (15-37); Albumin 3.6 g/dL (3.4-5.0); Alkaline Phosphatase 98 U/L (46-116); BUN 24 mg/dL (7-18); Bilirubin, Total 0.28 mg/dL (0.2-1.0); CREATININE 1.2 mg/dL (0.70-1.30); Calcium 9.3 mg/dL (8.5-10.1); Chloride 104 mmol/L (98-107); Estimated GFR 65.87 (mL/min/1.73m2); Glucose 249 mg/dL (74-106); Potassium 5.4 mmol/L (3.5-5.1); Sodium 142 mmol/L (136-145); Total Protein 7.2 g/dL (6.4-8.2)
[2023-09-17 11:25] LABS: NT-proBNP 24 pg/mL (<300)
== END 2023-09-17 10:10 | disposition home or self-care (01) ==
LOC: LBO 10:10
PROVIDERS: PCP Family Medicine; Visit Provider Emergency Medicine
DX: I50.9 Heart failure, unspecified (principal); R60.0 Localized edema
CPT/HCPCS: 36415; 80053; 83880

== ENCOUNTER → 2023-10-11 14:28 | Outpatient (BNVA) | payer MEDICARE, SELFPAY | PROVIDERS: PCP Family Medicine; Referring Provider Family Medicine; Visit Provider Physician Assistant Surgical | DX: J47.9 Bronchiectasis, uncomplicated (principal); J98.6 Disorders of diaphragm; G70.9 Myoneural disorder, unspecified; J99 Respiratory disorders in diseases classified elsewhere; B94.8 Sequelae of other specified infectious and parasitic diseases; J98.4 Other disorders of lung; G47.33 Obstructive sleep apnea (adult) (pediatric) | CPT/HCPCS: 99214 ==

== ENCOUNTER → 2023-11-03 11:02 | Outpatient (BNVA) | payer MEDICARE, SELFPAY | PROVIDERS: PCP Family Medicine; Visit Provider Psychiatry & Neurology Neurology | DX: G25.0 Essential tremor (principal); G70.9 Myoneural disorder, unspecified; J99 Respiratory disorders in diseases classified elsewhere; E11.43 Type 2 diabetes mellitus with diabetic autonomic (poly)neuropathy; E11.49 Type 2 diabetes mellitus with other diabetic neurological complication; E11.65 Type 2 diabetes mellitus with hyperglycemia; R06.02 Shortness of breath | CPT/HCPCS: 99214 ==

== ENCOUNTER 2023-11-19 00:08 | Outpatient (CLI) | payer MEDICARE, SELFPAY ==
--- NOTE | 2023-11-19 13:09 | DI.CT_ITS ---
Exam(s) CT CHEST WO EXAM: CT CHEST WO CLINICAL HISTORY: increased mucus production, bronchiectasis, J47.9. TECHNIQUE: Multi planar reconstructions were performed. CONTRAST MATERIAL: None COMPARISON: CT CT CHEST WO from 08/22/2021 CR,XR XR PORTABLE CHEST AP from 08/02/2022 FINDINGS: CHEST: LUNGS: Small nodules in both lung valentino again noted both calcified and noncalcified and ranging in s ize to 4 mm. The largest measures 4 mm and located in the right lower lobe and appears unchanged. T here is some mild atelectasis in the lung bases lower lobes again noted, unchanged. Also mild benign -appearing increased markings unchanged in the inferior lingular segment of the left lung. There are no new findings in the trachea and mainstem bronchi. MEDIASTINUM: There is no obvious hilar nor mediastinal adenopathy. No axillary adenopathy. CARDIAC: Heart size is normal. There is no pericardial effusion.Caliber of the thoracic aorta is wit hin normal limits. VISUALIZED UPPER ABDOMEN: No adrenal masses. Gallbladder surgically absent. No splenomegaly. OSSEOUS: Right shoulder prosthesis. Degenerative changes noted in the left glenohumeral joint. IMPRESSION: 1. Benign-appearing bilateral lung findings as described above, stable and without significant change when compared to prior CT scan of 08/22/2021. 2. No pleural effusions. 3. No significant intrathoracic adenopathy. RADIATION DOSE DELIVERED: 438.95mGy.cm Total DLP DATA REPOSITORY: All CT scans at this facility are submitted to the National Radiology Data Registry (NRDR) Dose Index Registry (DIR) with the [employer] (A[employer]). RADIATION OPTIMIZATION: All CT scans at this facility use at least one of these dose optimization te chniques: automated exposure control; mA and/or kV adjustment per patient size (includes targeted exa ms where dose is matched to clinical indication); or iterative reconstruction.
== END 2023-11-19 00:28 ==
LOC: DI 00:08
PROVIDERS: PCP Family Medicine; Visit Provider Physician Assistant Surgical
DX: R91.8 Other nonspecific abnormal finding of lung field (principal)
CPT/HCPCS: 71250

== ENCOUNTER 2023-12-24 13:38 | Outpatient (CLI) | payer MEDICARE, SELFPAY ==
--- NOTE | 2023-12-24 13:30 | RT.EKG_ITS ---
APPROVED REPORT Exam: Resting ECG Reason for Exam: Pre-op exam Patient Location: O HR:87 bpm ECG Measurements Heart Rate 87 AXIS NC 184 P 37 QRSd 110 QRS 25 QT 411 T 69 QTc 495 Conclusion Sinus rhythm...normal P axis, V-rate 50- 99 Atrial premature complex...SV complex w/ short R-R interval early transition...QRS area>0 in V2
== END 2023-12-24 13:39 | disposition home or self-care (01) ==
LOC: DI.KIM 13:39
PROVIDERS: PCP Family Medicine; Visit Provider Family Medicine
DX: Z01.818 Encounter for other preprocedural examination (principal)
CPT/HCPCS: 93010

== ENCOUNTER → 2024-04-11 11:01 | Outpatient (BNVA) | payer MEDICARE, SELFPAY | PROVIDERS: PCP Family Medicine; Referring Provider Family Medicine; Visit Provider Physician Assistant Surgical | DX: J98.6 Disorders of diaphragm (principal); G70.9 Myoneural disorder, unspecified; J99 Respiratory disorders in diseases classified elsewhere; J98.4 Other disorders of lung; G47.33 Obstructive sleep apnea (adult) (pediatric); J47.9 Bronchiectasis, uncomplicated; B94.8 Sequelae of other specified infectious and parasitic diseases | CPT/HCPCS: 99214 ==

== ENCOUNTER → 2024-05-03 10:45 | Outpatient (BNVA) | payer MEDICARE, SELFPAY | PROVIDERS: PCP Family Medicine; Visit Provider Psychiatry & Neurology Neurology | DX: G70.9 Myoneural disorder, unspecified (principal); J99 Respiratory disorders in diseases classified elsewhere; E11.43 Type 2 diabetes mellitus with diabetic autonomic (poly)neuropathy; E11.49 Type 2 diabetes mellitus with other diabetic neurological complication; E11.65 Type 2 diabetes mellitus with hyperglycemia; R06.02 Shortness of breath; G25.0 Essential tremor; R26.89 Other abnormalities of gait and mobility; G56.22 Lesion of ulnar nerve, left upper limb; R41.3 Other amnesia | CPT/HCPCS: 99214 ==

== ENCOUNTER 2024-05-25 03:08 | Outpatient (CLI) | payer MEDICARE, SELFPAY ==
[2024-05-25] MEDS: Levalbuterol HFA 15 GM INH 4 PUFF IH (14:44)
[2024-05-25] MEDS: Inhaler, Assist Device 1 EACH MC (14:44)
--- NOTE | 2024-05-30 14:50 | W.PFT ---
Date of service: 05/25/24 Time of Service: 13:17 Pulmonary Function Test Result Indications: Neuromuscular respiratory weakness Interpretation Spirometry: Restrictive spirometry. Decreased MIP and MEP. Lung Volumes: Moderate restriction Diffusion Capacity: Decreased diffusion Airway Pressure: Normal airways resistance Impression Moderate restrictive lung disease with a decreased diffusion. Clinical Correlation therefore is recommended.
== END 2024-05-25 03:09 | disposition home or self-care (01) ==
LOC: RT 03:09
PROVIDERS: PCP Family Medicine; Visit Provider Student in an Organized Health Care Education/Training Program
DX: J98.6 Disorders of diaphragm (principal); G70.9 Myoneural disorder, unspecified
CPT/HCPCS: 94060; 94726; 94729

== ENCOUNTER 2024-05-29 11:48 | Outpatient (CLI) | payer MEDICARE, SELFPAY ==
--- NOTE | 2024-05-29 11:15 | DI.RAD_ITS ---
Exam(s) XR THUMB LT EXAM: XR THUMB LT EXAM DATE/TIME: CLINICAL HISTORY: Old injury, increased pain, thumb pain, M79.646. TECHNIQUE: 2D digital imaging was performed of the left finger. Three views were obtained. PA/AP, oblique, and lateral views were obtained. COMPARISON: None. FINDINGS: BONES: No acute fracture is present. No bony destructive lesion is seen. JOINTS: No dislocation is present. Arthritic changes are seen at both the MCP and the interphalangea l joint of the thumb. The findings are most marked at the MCP joint where there is joint space narro wing present. There also appear to be some erosions along the head of the 1st metacarpal and the bas e of the proximal phalanx. SOFT TISSUE: Normal. IMPRESSION: Arthritic changes seen in the thumb which may reflect an inflammatory arthritis. DATA REPOSITORY: RADIATION DOSE DELIVERED:
== END 2024-05-29 12:08 ==
LOC: DI 11:48
PROVIDERS: PCP Family Medicine; Visit Provider Family Medicine
DX: M79.642 Pain in left hand (principal)
CPT/HCPCS: 73140

== ENCOUNTER → 2024-06-07 10:52 | Outpatient (BNVA) | payer MEDICARE, SELFPAY | PROVIDERS: PCP Family Medicine; Referring Provider Family Medicine; Visit Provider Podiatrist | DX: L60.3 Nail dystrophy (principal); E11.65 Type 2 diabetes mellitus with hyperglycemia; E11.51 Type 2 diabetes mellitus with diabetic peripheral angiopathy without gangrene; E11.3511 Type 2 diabetes mellitus with proliferative diabetic retinopathy with macular edema, right eye; E11.43 Type 2 diabetes mellitus with diabetic autonomic (poly)neuropathy; G47.62 Sleep related leg cramps; G62.82 Radiation-induced polyneuropathy; I89.0 Lymphedema, not elsewhere classified; R60.0 Localized edema; R25.2 Cramp and spasm; M77.41 Metatarsalgia, right foot; M77.42 Metatarsalgia, left foot; M67.01 Short Achilles tendon (acquired), right ankle; M67.02 Short Achilles tendon (acquired), left ankle | CPT/HCPCS: 11719 ==

== ENCOUNTER 2024-07-17 02:18 | Emergency (ER) | payer MEDICARE, SELFPAY ==
[2024-07-17 02:25] VITALS: BP 166/100; PULSE 95; RESP 16; TEMP 35.9; O2SAT 96
[2024-07-17] MEDS: Acetaminophen 500 MG TAB 1000 MG PO (02:47)
--- NOTE | 2024-07-17 03:22 | DI.RAD_ITS ---
Exam(s) XR TIB/FIB LT XR ANKLE LT COMPLETE EXAM: XR ANKLE LT COMPLETE CLINICAL HISTORY: lateral ankle pain after fall TECHNIQUE: 2D digital imaging was performed. Three views. COMPARISON: CR,XR XR TIB/FIB LT from 07/17/2024 FINDINGS: BONES: No acute fracture is present. No bony destructive lesion is seen. JOINTS:The ankle mortise is normally aligned. Mild periarticular spurring. Question joint effusion . The knee is unremarkable as visualized. SOFT TISSUE: Swelling around ankle. Calcifications. IMPRESSION: Soft tissue swelling around the ankle. No acute bony abnormality. DATA REPOSITORY: RADIATION DOSE DELIVERED:
--- NOTE | 2024-07-17 03:29 | DI.VRAD_ITS ---
PROCEDURE INFORMATION: Exam: XR Left Tibia and Fibula Exam date and time: 07/17/2024 3:12 AM Age: 69 years old Clinical indication: Injury or trauma; Blunt trauma; Lower leg and ankle; Left; Injury date: 07/17/24; Lateral mid fib pain after fall TECHNIQUE: Imaging protocol: Radiologic exam of the left tibia and fibula. Views: 2 views. COMPARISON: CR XR ANKLE LT COMPLETE 07/17/2024 3:10 AM FINDINGS: Bones/joints: Normal. Soft tissues: Normal. IMPRESSION: No acute findings. Dictated and Authenticated by: Claudio Brenner MD. Orderin Margarette Das MD
[2024-07-17 03:30] VITALS: BP 160/90; PULSE 90; RESP 16; O2SAT 95
--- NOTE | 2024-07-17 03:31 | DI.VRAD_ITS ---
PROCEDURE INFORMATION: Exam: XR Left Ankle Exam date and time: 07/17/2024 3:10 AM Age: 69 years old Clinical indication: Injury or trauma; Blunt trauma; Lower leg and ankle; Left; Injury date: 07/17/24; Lateral ankle pain after fall TECHNIQUE: Imaging protocol: Radiologic exam of the left ankle. Views: 3 or more views. COMPARISON: No relevant prior studies available. FINDINGS: Bones/joints: Possible ankle joint effusion. No fracture or dislocation. Soft tissues: Normal. IMPRESSION: 1. Possible ankle joint effusion. 2. No fracture or dislocation. Dictated and Authenticated by: Claudio Brenner MD. Orderin Margarette Das MD
--- NOTE | 2024-07-17 03:43 | W.ED.GENAD ---
Discharge Plan Disposition Patient Disposition: Home Condition: Good Discharge Details Chief Complaint: Orthopedic Clinical Impression: Ankle pain, left, Muscle tear Primary Care Provider: Alli Calvillo ED Provider: Thiago Pfeiffer Home Meds and New Rx's Prescriptions: No Action glucagon HCl [Glucagon (HCl) Emergency Kit] 1 mg recon soln 1 mg subcut Q20M PRN (Reason: hypoglycemia) Qty: 1 3RF Rx Instructions: until target blood sugar attained Mounjaro 15 mg/0.5 mL pen injector 15 mg subcut QWEEK Qty: 2 6RF Simbrinza 1-0.2 % drops,suspension 1 drp ophthalmic (eye) BID Qty: 8 6RF Rx Instructions: 1 gtt bid OS (left eye) acetaminophen 160 mg tablet,disintegrating 320 mg PO TID ipratropium-albuterol 0.5 mg-3 mg(2.5 mg base)/3 mL solution for nebulization 3 ml inhalation QID PRN (Reason: wheezing) Qty: 180 6RF (DME) diabetic shoes See Rx Instructions .Route .MEDSUPPLY Qty: 1 0RF Rx Instructions: As directed albuterol sulfate [ProAir HFA] 90 mcg/actuation HFA aerosol inhaler See Rx Instructions inhalation Q6H PRN (Reason: bronchospasm) Qty: 8.5 6RF Rx Instructions: inhaled every 6 hours PRN; (DME) Oxygen Tank See Rx Instructions .Route Qty: 1 0RF Rx Instructions: Use 2Lpm at night as directed melatonin 5 mg capsule 10 mg PO HS carboxymethylcellulose sodium [Refresh Tears] 0.5 % drops 1 drp ophthalmic (eye) BID Rx Instructions: 1 gtt BID OS (bilateral) magnesium glycinate 100 mg tablet See Rx Instructions PO BID Rx Instructions: 1-2 tabs orally twice a day; esomeprazole magnesium 40 mg capsule,delayed release(DR/EC) 40 mg PO DAILY Qty: 90 3RF venlafaxine 225 mg tablet extended release 24hr See Rx Instructions .ROUTE .COMPLEX Qty: 90 3RF Dose Instruction: TAKE 1 TABLET BY MOUTH DAILY Rx Instructions: TAKE 1 TABLET BY MOUTH DAILY Stiolto Respimat 2.5-2.5 mcg/actuation mist See Rx Instructions .ROUTE .COMPLEX Qty: 4 6RF Dose Instruction: INHALE 2 PUFFS BY MOUTH DAILY Rx Instructions: INHALE 2 PUFFS BY MOUTH DAILY atorvastatin 40 mg tablet 40 mg PO DAILY Qty: 90 3RF insulin glargine [Lantus Solostar U-100 Insulin] 100 unit/mL (3 mL) insulin pen 50 unit subcut QAM Qty: 15 3RF Humulin R U-500 (Conc) Kwikpen 500 unit/mL (3 mL) insulin pen See Rx Instructions subcut TID MDD 170 units Qty: 9 6RF Rx Instructions: subcutaneously three times a day; 80 Qam, 15 units at noon, 75 units QHS; To keep HbA1c less than 6.5%, Dx: Ell.65 (DME) FreeStyle Izabella 3 Plus Sensor Device See Rx Instructions .Route Qty: 2 11RF Rx Instructions: Dx: E11.9, to keep HbA1c less than 8%; Test TID and prn trazodone 150 mg tablet 150 mg PO QHS PRN (Reason: sleep) Qty: 90 3RF pregabalin 200 mg capsule 200 mg PO BID Qty: 180 3RF (DME) pen needle, diabetic 31 gauge x 3/16 needle See Rx Instructions .ROUTE .COMPLEX Qty: 200 0RF Dose Instruction: USE DIRECTED 7 TIMES A DAY Rx Instructions: USE DIRECTED 7 TIMES A DAY dapagliflozin propanediol [Farxiga] 10 mg tablet 10 mg PO DAILY Qty: 90 3RF modafinil 200 mg tablet 400 mg PO DAILY Qty: 180 3RF Discharge Instructions Instructions: Ankle Sprain ED Additional Instructions: At this time the x-ray shows no evidence of fracture. I suspect you have sprained your ankle and potentially sprained or torn the muscles on the lateral aspect of your leg. Please wear the walking boot for the next 2 weeks minimum. Please follow-up closely with patient care specialist for reassessment after supportive therapy. Please rub Voltaren gel down on that area to help with the pain. If you notice any worsening of your symptoms, or any new symptoms such as vomiting, diarrhea, fever, chills, shortness of breath, chest pain, numbness, weakness, or fainting , please return immediately to the emergency department for reevaluation. Please follow up with your primary care provider as soon as possible for reassessment and reevaluation. As always, it was a pleasure participating in your medical care today. Referrals: Alli Calvillo DO [Primary Care Provider] - [facility] General Date/Time Provider Initiated Documentation: 07/17/24 02:20. HPI Narrative: This is a pleasant 69-year-old male who presents today for left ankle pain. Patient was walking, and trying to take care of his generator because of the power outage night. He ended up slipping and inverting his left ankle, he heard a pop, and then had pain in the ankle and left lateral calf. Pain was made worse with supination of the ankle, as well as walking. He admits to numbness and tingling on the lateral aspect of his calf. He denies any trauma anywhere else. No other complaints. No pain in the knee. He did take Advil prior to arrival without significant improvement. Related Data Home Medications ?Medication ?Instructions ?Recorded ?Confirmed Oxygen #1 ea 11/11/21 07/17/24 melatonin 5 mg capsule 10 mg PO HS 08/10/22 07/17/24 glucagon HCl 1 mg solution for 1 mg subcut Q20M PRN hypoglycemia 05/04/23 07/17/24 injection (Glucagon (HCl) #1 ea Emergency Kit) carboxymethylcellulose sodium 0.5 1 drp ophthalmic (eye) BID 05/28/23 07/17/24 % eye drops (Refresh Tears) magnesium glycinate 100 mg (as See Rx Instructions PO BID 06/09/23 07/17/24 glycinate) tablet albuterol sulfate 90 mcg/actuation See Rx Instructions inhalation Q6H 07/20/23 07/17/24 aerosol inhaler (ProAir HFA) PRN bronchospasm #8.5 grams diabetic shoes #1 ea 07/20/23 07/17/24 esomeprazole magnesium 40 mg 40 mg PO DAILY #90 caps 09/27/23 07/17/24 capsule,delayed release venlafaxine 225 mg tablet,extended See Rx Instructions .Route 10/08/23 07/17/24 release 24 hr .COMPLEX #90 tabs acetaminophen 160 mg 320 mg PO TID 10/11/23 07/17/24 disintegrating tablet ipratropium 0.5 mg-albuterol 3 mg 3 ml inhalation QID PRN wheezing 10/11/23 07/17/24 (2.5 mg base)/3 mL nebulization #180 mL soln tiotropium 2.5 mcg-olodaterol 2.5 See Rx Instructions .Route 12/20/23 07/17/24 mcg/actuation mist for inhalation .COMPLEX #4 grams (Stiolto Respimat) atorvastatin 40 mg tablet 40 mg PO DAILY #90 tabs 12/28/23 07/17/24 insulin glargine 100 unit/mL (3 50 unit (0.5 mL) subcut QAM #15 mL 03/27/24 07/17/24 mL) subcutaneous pen (Lantus Solostar U-100 Insulin) insulin regular hum U-500 conc 500 See Rx Instructions subcut TID #9 04/07/24 07/17/24 unit/mL(3 mL) subcut pen (Humulin mL R U-500 (Conc) Insulin Kwikpen) blood-glucose sensor (FreeStyle #2 ea 04/18/24 07/17/24 Izabella 3 Plus Sensor device) brinzolamide 1 %-brimonidine 0.2 % 1 drp ophthalmic (eye) BID #8 mL 05/29/24 07/17/24 eye drops,suspension (Simbrinza) tirzepatide 15 mg/0.5 mL 15 mg (0.5 mL) subcut QWEEK #2 mL 05/29/24 07/17/24 subcutaneous pen injector (Yamileth) trazodone 150 mg tablet 150 mg PO QHS PRN sleep #90 tabs 06/01/24 07/17/24 pregabalin 200 mg capsule 200 mg PO BID for neuropathic pain 06/19/24 07/17/24 #180 caps pen needle, diabetic 31 gauge x #200 ea 06/26/24 07/17/24 3/ dapagliflozin propanediol 10 mg 10 mg PO DAILY #90 tabs 07/06/24 07/17/24 tablet (Farxiga) modafinil 200 mg tablet 400 mg (2 x 200 mg) PO DAILY #180 07/06/24 07/17/24 tabs Previous Rx's ?Medication ?Instructions ?Recorded Oxygen #1 ea 11/11/21 glucagon HCl 1 mg solution for 1 mg subcut Q20M PRN hypoglycemia 05/04/23 injection (Glucagon (HCl) #1 ea Emergency Kit) albuterol sulfate 90 mcg/actuation See Rx Instructions inhalation Q6H 07/20/23 aerosol inhaler (ProAir HFA) PRN bronchospasm #8.5 grams diabetic shoes #1 ea 07/20/23 esomeprazole magnesium 40 mg 40 mg PO DAILY #90 caps 09/27/23 capsule,delayed release venlafaxine 225 mg tablet,extended See Rx Instructions .Route 10/08/23 release 24 hr .COMPLEX #90 tabs ipratropium 0.5 mg-albuterol 3 mg 3 ml inhalation QID PRN wheezing 10/11/23 (2.5 mg base)/3 mL nebulization #180 mL soln tiotropium 2.5 mcg-olodaterol 2.5 See Rx Instructions .Route 12/20/23 mcg/actuation mist for inhalation .COMPLEX #4 grams (Stiolto Respimat) atorvastatin 40 mg tablet 40 mg PO DAILY #90 tabs 12/28/23 insulin glargine 100 unit/mL (3 50 unit (0.5 mL) subcut QAM #15 mL 03/27/24 mL) subcutaneous pen (Lantus Solostar U-100 Insulin) insulin regular hum U-500 conc 500 See Rx Instructions subcut TID #9 04/07/24 unit/mL(3 mL) subcut pen (Humulin mL R U-500 (Conc) Insulin Kwikpen) blood-glucose sensor (FreeStyle #2 ea 04/18/24 Izabella 3 Plus Sensor device) brinzolamide 1 %-brimonidine 0.2 % 1 drp ophthalmic (eye) BID #8 mL 05/29/24 eye drops,suspension (Simbrinza) tirzepatide 15 mg/0.5 mL 15 mg (0.5 mL) subcut QWEEK #2 mL 05/29/24 subcutaneous pen injector (Yamileth) trazodone 150 mg tablet 150 mg PO QHS PRN sleep #90 tabs 06/01/24 pregabalin 200 mg capsule 200 mg PO BID for neuropathic pain 06/19/24 #180 caps pen needle, diabetic 31 gauge x #200 ea 06/26/2406/04 dapagliflozin propanediol 10 mg 10 mg PO DAILY #90 tabs 07/06/24 tablet (Farxiga) modafinil 200 mg tablet 400 mg (2 x 200 mg) PO DAILY #180 07/06/24 tabs Allergies Allergy/AdvReac Type Severity Reaction Status Date / Time metaxalone (From Skelaxin) Allergy Mild Nausea Verified 07/17/24 02:30 iodine Allergy Unknown Skin Rash Verified 07/17/24 02:30 latex Allergy Unknown Skin Rash Verified 07/17/24 02:30 banana AdvReac Unknown Nausea Verified 07/17/24 02:30 gabapentin AdvReac Unknown Nausea Verified 07/17/24 02:30 metformin AdvReac Unknown Nausea Verified 07/17/24 02:30 General Stated Complaint: Orthopedic KELLEY: 4 Exam Narrative Exam Narrative: 1.Const: Well-nourished, Well-developed, appearing stated age 2.Eyes: PERRL, no conjunctival injection, and symmetrical lids. 3.ENT: Atraumatic external nose and ears. Moist MM. Neck: Symmetric, trachea midline, No thyromegaly. 4.CVS: +S1/S2, Peripheral pulses 2+ and equal in all extremities. Brisk capillary refill in all extremities. 5.RESP: Unlabored respiratory effort. Clear to auscultation bilaterally. No wheezes rales or rhonchi 6.GI: Soft, Nontender/Nondistended, No hepatosplenomegaly. No guarding or rebound. 7.MSK: Left ankle demonstrates tenderness over the lateral malleolus, and tenderness over the lateral calf. No bruising. Patient has notable weakness and difficulty pronating his foot. He is able to supinate his foot. He has good strength for plantar flexion, but reduced strength for dorsiflexion. No tenderness anywhere else. Knee exam is unremarkable. 8.Skin: Warm, Dry. No rashes or lesions. 9.Neuro: corrugator II-XII grossly intact. Sensation grossly intact except for slightly diminished sensation on the lateral aspect of the calf, no focal neurologic deficits. 10.Psych: (AAO) x3. Appropriate mood and affect Course Vital Signs Vital signs: Vital Signs Temperature 35.9 C L 07/17/24 02:25 Pulse 95 H 07/17/24 02:25 Respiratory Rate 16 07/17/24 02:25 Blood Pressure 166/100 H 07/17/24 02:25 Pulse Oximetry 96 07/17/24 02:25 Temperature 35.9 C L 07/17/24 02:25 Temperature Source Temporal Artery Scan 07/17/24 02:25 Pulse 95 H 07/17/24 02:25 Respiratory Rate 16 07/17/24 02:25 Blood Pressure 166/100 H 07/17/24 02:25 Blood Pressure Position Supine 07/17/24 02:25 Pulse Oximetry 96 07/17/24 02:25 Oxygen Delivery Method Room Air 07/17/24 02:25 Oxygen Flow Rate 0 07/17/24 02:25 Pain Level 7 07/17/24 02:34 Medical Decision Making This is a pleasant 69-year-old male who presents today for left ankle pain. Patient was walking, and trying to take care of his generator because of the power outage night. He ended up slipping and inverting his left ankle, he heard a pop, and then had pain in the ankle and left lateral calf. Pain was made worse with supination of the ankle, as well as walking. He admits to numbness and tingling on the lateral aspect of his calf. He denies any trauma anywhere else. No other complaints. No pain in the knee. He did take Advil prior to arrival without significant improvement. Left ankle demonstrates tenderness over the lateral malleolus, and tenderness over the lateral calf. No bruising. Patient has notable weakness and difficulty pronating his foot. He is able to supinate his foot. He has good strength for plantar flexion, but reduced strength for dorsiflexion. No tenderness anywhere else. Knee exam is unremarkable. Concern for potential fibularis longus or brevis injury versus soleus injury. X-ray was ordered and shows no fracture of the ankle or tib-fib. Will give walking boot and recommend to use for the next 2 weeks, will place orthopedic referral for further evaluation after period of supportive therapy for suspected tenderness or muscular injury or tear.. Discussed red flags for which to return. I have extensively reviewed the treatment plan and discharge instructions with the patient and their family. I have addressed all patient concerns at this time. The patient and family was made aware of what symptoms to monitor for that would warrant a return to the emergency department. Discussed the plan with the patient and family, they demonstrate verbal understanding and agreement with our assessment and plan at this time. The documentation in this chart was dictated using [employer] dictation software. Please excuse any dictation errors. FINDINGS: Bones/joints: Possible ankle joint effusion. No fracture or dislocation. Soft tissues: Normal. IMPRESSION: 1. Possible ankle joint effusion. 2. No fracture or dislocation. Thank you for allowing us to participate in the care of your patient. Dictated and Authenticated by: Claudio Brenner MD 07/17/2024 3:31 AM Eastern Time ([place] & [place]) Quality:SDOH Health Related Social Needs: No Data to Display PFSH All Active Problems (Updated 07/17/24 @ 03:49 by Thiago Pfeiffer, ) Muscle tear (Acute) Ankle pain, left (Acute) Thumb pain (Acute) Glaucoma (Chronic) Memory change (Acute) Ulnar neuropathy of left upper extremity (Acute) Nocturnal hypoxemia (Acute) Status post reverse total arthroplasty of left shoulder (Acute 01/18/24) Dr Bass @ [facility] [place] Primary osteoarthritis, left shoulder (Acute) Bronchiectasis (Acute) Impacted cerumen, left ear (Acute) Psychophysiologic insomnia (Acute) Achilles tendon contracture, bilateral (Acute) Metatarsalgia of both feet (Acute) Leg cramping (Acute) Edema (Acute) Lymphedema (Acute) Radiation induced neuropathy (Acute) Other specified diabetes mellitus with diabetic peripheral angiopathy without gangrene (Acute) Cognitive and behavioral changes (Acute) Wears hearing aid in both ears (Acute) Hypersomnia (Acute) Acute dysfunction of both eustachian tubes (Acute) Acute sinusitis (Acute) Adenomatous polyp of colon (Acute) Pain, foot (Acute) Metatarsalgia (Acute) Nail dystrophy (Acute) Macular edema (Acute ~05/2021) 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) 06/06/21 R EYE Cataract, nuclear sclerotic, both eyes (Acute ~05/2021) Osteoarthritis of right hip (Acute) Change in voice (Acute) Essential tremor (Acute) Brain fog (Acute) Diaphragm dysfunction (Acute) Conductive hearing loss, external ear (Acute) Impacted cerumen, bilateral (Acute) Cervical stenosis of spinal canal (Acute) Shortness of breath (Acute) Neuromuscular respiratory weakness (Acute) Post-acute sequelae of COVID-19 (PASC) (Acute) Other hypersomnia (Acute) Cramp in lower extremity associated with sleep (Acute) Periodic limb movement disorder (Acute) Restrictive lung disease (Chronic) PFTs 09/08 shows moderately severe restriction Prostate CA (Chronic) Injury of tongue (Acute) Posterior vitreous detachment of right eye (Acute) 09/05/18 [facility] complicated by vitreous hemorrhage, no rhegmatogenous retinal pathology Chronic pain (Acute 10/21/07) Impacted cerumen (Acute 03/16/13) Irritable bowel syndrome (Acute 03/21/86) Mixed conductive and sensorineural hearing loss of both ears (Acute 06/01/14) Otosclerosis (Acute 06/24/05) Sensorineural hearing loss (Acute 06/01/14) Tinnitus (Acute 04/07/13) 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 Type II diabetes mellitus (Chronic 2002) goal A1C 8.0 (Comi) , 5 pm glucose <150 06/24/18 Orthostatic hypotension dysautonomic syndrome (Chronic 08/19/16) Obstructive sleep apnea syndrome (Chronic 06/14/09) C-PAP ([facility]) not tolerated, re-eval 09/16/20 w/ nocturnal hypoxia 05/26/21 F/U Sleep Clinic - pt will have repeat in lab sleep study to requalify for CPAP 06/30/21 F/Y at Sleep Clinic Obesity (BMI 30.0-34.9) (Acute 09/19/00) Mixed conductive and sensorineural hearing loss (Acute 03/16/13) fit with B/L FOCUS RESEARCH Q50-SP BTE hearing aids. size 13 batteries Mild nonproliferative diabetic retinopathy (Acute 04/04/13) 06/14/18 mild non-proliferative DR L eye 09/05/[address] R eye 08/26/20 right moderate non-proliferative; Left Moderate non proliferative. Right: Diabetic macular edema present; Left Diabetic macular ededma present Loc osteoarth NOS-unspec (Acute 02/20/05) Impotence, organic (Acute 12/19/08) S/P PROSTATE SURG Hyperlipidemia (Acute 06/24/05) GOAL LDL <100 (DM) Atorvastatin renewed. Dizziness (Acute 01/30/13) MULTIFACTORAL: EAR/PERIPHERAL NEUROPATHY, AUTONOMIC, ?ORTHOSTATIC DUE TO HYPERGLYCEMIA Depressive disorder (Chronic 07/23/09) Bupropion renewed. Cutaneous follicle center lymphoma (Acute 07/24/16) Favor primary cutaneous, occiput, refer [facility] (Dr Gallegos) Compulsive shopping (Acute 08/31/14) Naltrexone renewed. Chronic pain in right shoulder (Acute 11/03/16) Cervical spondylosis without myelopathy (Acute 11/03/16) pain; 01/06/19 - MRI shows progression of degenerative changes and canal stenosis at C4-5. Severe facet arthropathy at the C3-4 level. Brachial neuritis (Acute 01/04/09) WITH PARALYZED R HEMIDIAPHRAGM Barretts esophagus (Acute 10/25/14) last EGD 05/2012 [facility] Is omeprazole renewed. Autonomic neuropathy due to diabetes (Chronic) confirmed Dr Crenshaw 11/2013; drop attack June 2015 attributed to autonomic dysfunction (Dr Chen) Type II diabetes mellitus with neurological manifestations, uncontrolled (Acute 04/03/14) goal A1c 9-9% per Dr Palacios Cervical spondylosis without myelopathy (Chronic) Medical History Tubular adenoma of colon (~01/18/23) Hyperplastic rectal polyp Reactive gastropathy Notalgia paresthetica Keratosis pilaris Spondylitis, cervical Lymphoma Arthritis Primary cutaneous diffuse large cell B-cell lymphoma 2018 [facility] Peripheral neuropathy Adiposity Migraine DLBCL (diffuse large B cell lymphoma) Seborrheic keratosis Cervical disc disorder with radiculopathy, cervicothoracic region 05/21/21 [facility] Neurosurgery Thoracic spine fracture T7, T8 Spinous processes. Nevus Tinea versicolor Acrochordon Balance problem Diarrhea Paresthesias in left hand ulnar pattern Cervicalgia Other diseases of respiratory system, not elsewhere classified Paralyzed hemidiaphragm RIGHT GERD (gastroesophageal reflux disease) Impacted cerumen of both ears Surgical History History of left shoulder replacement History of reverse total replacement of left shoulder joint 01/18/[address] Ellen Bass at [facility] [place] H/O vitrectomy History of colonoscopy (01/18/23) Rec 3 years S/P decompression of ulnar nerve at elbow revise ulnar nerve at elbow. History of bone marrow biopsy Hx of hernia repair stapedectomy (09/21/06) Right rgt total shoulder arthroplasty (05/19/17) [facility] Right shoulder revision RTC repair 08/04/17 (subscapularis). rgt shoulder surgery (03/05/08) manipulation Dr Baltazar radio-ablation (11/20/05) r ankle 3rd def sp (08/21/99) cts right (08/20/13) R [facility] endoscopic bernardo Vasectomy (09/21/06) Upper GI endoscopy (10/25/14) Juarez's esophagus Right shoulder (03/19/14) subacromial decompression, tenotomy, distal clavicle; [facility] Prostatectomy (03/21/08) radical Nasal septoplasty (01/13/07) Excision, Scalp Mass (06/11/16) Colonoscopy - MAC (01/13/17) Colonoscopy - IV Sedation (07/05/06) Cholecystectomy (03/21/96) CTS & CUBOID TUNNEL RELEASE (07/05/12) LEFT, [facility] Bronchoscopy (09/04/08) Arthroscopy, Shoulder (12/06/12) Dr Bass, [facility] [place], L shoulder Arthroplasty (05/07/17) Rt total shoulder arthroplasty 05/07/17 [facility] 08/19/17 [facility] report~2WEEK ov s/p right shoulder revision. Family History Mother , CVA's at age 88. Hypertensive disorder, systemic arterial Family history of stroke Personal history of malignant neoplasm skin ca Heart disease stent Dementia Father , cardiac at age 94. Personal history of malignant neoplasm skin ca prostate ca Depression Anxiety Brother Depression Heart disease cardiomyopathy Anxiety Daughter Age: 55 Hypertensive disorder, systemic arterial Diabetes Sister Anxiety Depression Heart disease Social History Smoking/Tobacco Use Status: Never Second Hand Exposure: No Smoking risk assessment performed?: Yes Alcohol Intake: current Alcohol Intake frequency: holidays/special occasions only Drug use: Never Substance use type: does not use Adopted: No Caregiver/Support person: No Household members: spouse Housing: house Number of Children: 2 Communication Needs: Hard of Hearing and Corrective Lenses Education Level: college Do you need help understanding health information?: Rarely current occupation: disability due to paralized diaphragm, Prostate CA, shoulder weakness,DM Pets and animals: Yes Pets and animals: cat(s), snake(s) and other Sexually active: Yes Do you think of yourself as: straight/heterosexual Current gender identity: male What is your relationship status?: How often do you talk on the phone with friends or family?: twice per week How often do you get together with friends or relatives?: once per week How often do you attend tenriism or gnosticist services?: 1-3 times per year Do you belong to any clubs or organized social groups?: yes Panel score (0-1 are the most socially isolated patients): 3 What type of physical activity do you participate in: walking, bicycling and other Details: rowing machine Duration: 15-30 minutes/day Frequency: 3-4 times per week Gladys/Restorationist: Mu-Ism Special gladys needs: No Seatbelt use: always Helmet use: Yes Helmet use: sometimes Drive intox or ride w/intox otr truck driver: No Working smoke detector in home: Yes Carbon monox detector in home: Yes Do you feel safe at home: Yes Do you feel safe in your relationship?: Yes
[2024-07-17] MEDS: Cyclobenzaprine 10 MG TAB PO (04:10)
[2024-07-17 04:27] VITALS: BP 164/90; PULSE 88; RESP 16; O2SAT 96
--- NOTE | 2024-07-19 07:38 | NUR.NOTE ---
Accessed chart to get the discharge diagnosis for [facility] billing purposes and to print the facesheet. Nursing Note:
== END 2024-07-17 04:29 | disposition home or self-care (01) ==
PROVIDERS: Emergency Provider Student in an Organized Health Care Education/Training Program; PCP Family Medicine
DX: M25.572 Pain in left ankle and joints of left foot (principal)
CPT/HCPCS: 99284; 99283; 73590; 73610

== ENCOUNTER → 2024-08-02 12:47 | Outpatient (BNVA) | payer MEDICARE, SELFPAY | PROVIDERS: PCP Family Medicine; Referring Provider Family Medicine; Visit Provider Student in an Organized Health Care Education/Training Program | DX: S93.402A Sprain of unspecified ligament of left ankle, initial encounter (principal); X58.XXXA Exposure to other specified factors, initial encounter; E11.9 Type 2 diabetes mellitus without complications | CPT/HCPCS: 99214 ==

== ENCOUNTER → 2024-10-24 11:01 | Outpatient (BNVA) | payer MEDICARE, SELFPAY | PROVIDERS: PCP Family Medicine; Referring Provider Family Medicine; Visit Provider Podiatrist | DX: L60.3 Nail dystrophy (principal); E11.49 Type 2 diabetes mellitus with other diabetic neurological complication; E11.65 Type 2 diabetes mellitus with hyperglycemia; E11.51 Type 2 diabetes mellitus with diabetic peripheral angiopathy without gangrene; G62.82 Radiation-induced polyneuropathy; R60.0 Localized edema; M79.671 Pain in right foot; M79.672 Pain in left foot; R09.89 Other specified symptoms and signs involving the circulatory and respiratory systems; L65.9 Nonscarring hair loss, unspecified; R23.8 Other skin changes; L60.2 Onychogryphosis; L60.8 Other nail disorders | CPT/HCPCS: 11721 ==

== ENCOUNTER → 2024-11-01 11:17 | Outpatient (BNVA) | payer MEDICARE, SELFPAY | PROVIDERS: PCP Family Medicine; Visit Provider Psychiatry & Neurology Neurology | DX: G70.9 Myoneural disorder, unspecified (principal); J99 Respiratory disorders in diseases classified elsewhere; E11.43 Type 2 diabetes mellitus with diabetic autonomic (poly)neuropathy; E11.49 Type 2 diabetes mellitus with other diabetic neurological complication; E11.65 Type 2 diabetes mellitus with hyperglycemia; R06.02 Shortness of breath; M48.02 Spinal stenosis, cervical region; G25.0 Essential tremor; M47.812 Spondylosis without myelopathy or radiculopathy, cervical region; G56.22 Lesion of ulnar nerve, left upper limb; R41.3 Other amnesia; E11.59 Type 2 diabetes mellitus with other circulatory complications; I10 Essential (primary) hypertension | CPT/HCPCS: 99214 ==

== ENCOUNTER → 2025-02-20 11:05 | Outpatient (BNVA) | payer MEDICARE, SELFPAY | PROVIDERS: PCP Family Medicine; Referring Provider Family Medicine; Visit Provider Podiatrist | DX: L60.3 Nail dystrophy (principal); B35.1 Tinea unguium; E11.42 Type 2 diabetes mellitus with diabetic polyneuropathy; E11.51 Type 2 diabetes mellitus with diabetic peripheral angiopathy without gangrene; G62.82 Radiation-induced polyneuropathy; R60.0 Localized edema; R09.89 Other specified symptoms and signs involving the circulatory and respiratory systems; L65.9 Nonscarring hair loss, unspecified; R20.8 Other disturbances of skin sensation; L53.8 Other specified erythematous conditions; R23.4 Changes in skin texture; R23.8 Other skin changes; L60.2 Onychogryphosis; L60.8 Other nail disorders; L85.8 Other specified epidermal thickening | CPT/HCPCS: 11055; 11721 ==